=== PATIENT | male | born 1940 | race Caucasian/White ===

== ENCOUNTER 2021-11-02 08:19 | Emergency (ER) | payer MEDICARE, SELFPAY ==
--- NOTE | 2021-11-02 09:36 | ED.MALEGU ---
HPI - Male Genitourinary General Time Seen by Provider: 09:20 Chief complaint: Urogenital Problems, Male Stated complaint: Urinating blood Time Seen by Provider: 11/02/21 09:20 Source: patient, family and RN notes reviewed Mode of arrival: ambulatory Limitations: no limitations History of Present Illness HPI Narrative: The patient is a very pleasant 81-year-old male with a history of prostate cancer, prostatectomy now with recurrent mass and on chemotherapy who comes to the emergency room for evaluation regarding blood in his urine. They noticed this started yesterday and has continued today. It is associated with some slight discomfort while urinating but patient does not experienced any fever or chills or vomiting. He has noted that over the past few days he is urinating frequently. Patient states that yesterday he was raising his leg up because it has been chronically swollen since the development of a DVT. He was told that he would need to get this fluid to reabsorbed into his system in order to urinated out. He is wondering if lifting his leg up like that cause the blood clot to somehow BMs reabsorbed and he is urinating that out. I have reassured him that is not the case at this time. Currently patient is on oral chemotherapy for metastatic prostate cancer. He is also on Eliquis as he developed a left leg DVT. Onset (ago): day(s) Related Data Home Medications Medication Instructions Recorded Confirmed abiraterone 250 mg tablet 1,000 mg PO DAILY 11/02/21 11/02/21 amlodipine 5 mg tablet 5 mg PO DAILY 11/02/21 11/02/21 apixaban 5 mg tablet (Eliquis) 5 mg PO Q12H 11/02/21 11/02/21 carvedilol 12.5 mg tablet mg 11/02/21 chlorthalidone 25 mg tablet 25 mg PO DAILY 11/02/21 11/02/21 levothyroxine 100 mcg tablet 100 mcg PO DAILY 11/02/21 11/02/21 lisinopril 40 mg tablet 40 mg PO DAILY 11/02/21 11/02/21 oxycodone 5 mg tablet mg PO Q4H PRN 11/02/21 potassium chloride 10 mEq 10 meq PO DAILY 11/02/21 11/02/21 tablet,extended release prednisone 5 mg tablet 5 mg PO Q12H 11/02/21 11/02/21 rivaroxaban 10 mg tablet (Xarelto) mg 11/02/21 Previous Rx's Medication Instructions Recorded cephalexin 500 mg capsule 500 mg PO TID #15 cap 11/02/21 Allergies Allergy/AdvReac Type Severity Reaction Status Date / Time hydrochlorothiazide Allergy Severe pancreatiti Verified 10/20/21 10:53 s latex Allergy Intermediate rash Verified 10/20/21 10:53 adhesives AdvReac Unknown Uncoded 10/20/21 10:53 Review of Systems Status of ROS: Reports: 6 or more systems reviewed and unremarkable except as noted in History and below Const: Denies: fever or chills Cardio: Denies: shortness of breath with exertion Resp: Denies: shortness of breath GI: Denies: abdominal pain, nausea or vomiting : Reports: urinary frequency and blood in urine Musculo: Denies: back pain PFSH PFSH Medical History Left femoral vein DVT Pulmonary embolism Social History Smoking Status: Former smoker Do you use any of these nicotine containing products: None Second hand tobacco smoke exposure: No How often do you have a drink containing alcohol: never AUDIT-C Alcohol total score: 0 Non-prescribed substance use: denies use service: Yes Exam Narrative: Exam Narrative: Patient is alert and oriented and very pleasant gentleman. He is not in any acute distress. His heart is with regular rate and rhythm at this time and is lungs are clear. His belly is protuberant but is soft and there is no tenderness. Lower extremity show left lower extremity bogginess mild erythema. It is not warm to the touch. He is ambulating without difficulty. Const: Documenting provider has reviewed patient's vital signs: yes Course Course Hospital Course: At this time patient presents with hematuria. Differential diagnosis does include UTI verses prostatic or bladder tumor that is bleeding. Urinalysis along with a CBC and basic panel as well as bladder ultrasound is ordered at this time. Reevaluation(s) Reevaluation #1: Bedside ultrasound shows less than 10 mils in the bladder. White count is reassuring and creatinine is at 1.9 consistent with previous values. Urinalysis shows evidence of hematuria and some white cells. MDM - Male Genitourinary MDM Narrative Medical decision making narrative: 1. UTI-patient at this time is presenting with the onset of hematuria yesterday. He does not appear to be retaining urine. White count is reassuring and he has no signs of sepsis. While awaiting the urine culture we will treat with Keflex 500 mg p.o. t.i.d.. 2. Disposition-patient is discharged home in the care of his . He will return for increasing fever vomiting and worsening symptoms. Medical Records Attestation: I reviewed the patient's medical records. Lab Data Attestation: I reviewed the patient's lab results. Labs: Lab Results 11/02/21 11/02/21 11/02/21 Range/Units 09:34 09:49 09:49 WBC 7.27 (4.50-11.00) K/uL RBC 4.24 L (4.30-5.90) m/uL Hgb 12.9 L (13.5-17.5) gm/dL Hct 39.2 (37.0-53.0) % MCV 93 (80-100) fL MCH 30 (26-34) pg MCHC 33 (32-36) gm/dL RDW Coeff of Kevyn 13.5 (11.5-15.5) % Plt Count 209 (140-440) K/uL Neut % (Auto) 78.1 H (42.0-72.0) % Lymph % (Auto) 13.1 L (20-44) % [place] % (Auto) 7.2 (0.0-11.0) % Eos % (Auto) 1.0 (0.0-7.0) % Baso % (Auto) 0.3 (0.0-3.0) % Neut # (Auto) 5.70 (1.7-7.0) K/uL Lymph # (Auto) 1.00 (0.90-2.90) K/uL [place] # (Auto) 0.50 (0.00-0.90) K/UL Eos # (Auto) 0.07 (0.00-0.50) K/uL Baso # (Auto) 0.02 (0.00-0.30) K/uL Abs Immat Gran (auto) 0.02 (0.00-0.30) K/uL Sodium 138 (135-149) mmol/L Potassium 3.7 (3.6-5.1) mmol/L Chloride 104 (96-114) mmol/L Carbon Dioxide 26 (20-32) mmol/L BUN 40 H (7-30) mg/dL Creatinine 1.9 H (0.5-1.5) mg/dL Glucose 108 (60-115) mg/dL Calcium 9.1 (8.4-10.6) mg/dL Urine Color Red A (Yellow) Urine Appearance Clear (Clear) Urine pH 5.0 (5.0-8.5) Ur Specific [place] 1.025 (1.000-1.030) Urine Protein 3+ A (Negative) Urine Glucose (UA) Negative (Negative) Urine Ketones Negative (Negative) Urine Blood 3+ A (Negative) Urine Nitrite Positive A (Negative) Urine Bilirubin 1+ A (Negative) Urine Urobilinogen 1.0 (0.2-1.0) Ur Leukocyte Esterase Negative (Negative) Urine RBC >100 A (0-2) Urine WBC 5-10 A (0-5) Ur Squamous Epith Cells Few (None-Few) Amorphous Sediment Many A (None) Other Sediment 0 (None) Urine Bacteria Many A (None) Urine Mucus (None) Discharge Plan Discharge Clinical Impression: Acute UTI, Metastatic malignant neoplasm to prostate Patient Disposition: Home, Self-Care Additional Instructions: Start antibiotic Keflex today. Await the urine culture to ensure that we have pick the right antibiotic. Follow-up with your physician if bleeding continues. Return to the emergency room if bleeding is worsening. Return to the emergency room if you develop fever, vomiting or chills. Activity Level: No Restrictions Prescriptions: New cephalexin 500 mg capsule 500 mg PO TID Qty: 15 0RF No Action chlorthalidone 25 mg tablet 25 mg PO DAILY 0RF prednisone 5 mg tablet 5 mg PO Q12H 0RF levothyroxine 100 mcg tablet 100 mcg PO DAILY 0RF potassium chloride 10 mEq tablet extended release 10 meq PO DAILY 0RF amlodipine 5 mg tablet 5 mg PO DAILY 0RF lisinopril 40 mg tablet 40 mg PO DAILY 0RF oxycodone 5 mg tablet PO Q4H PRN0RF Label Comments: 5 MG PO Q8-12H PRN MDD: 6 carvedilol 12.5 mg tablet 0RF abiraterone 250 mg tablet 1,000 mg PO DAILY 0RF Xarelto 10 mg tablet 0RF Eliquis 5 mg tablet 5 mg PO Q12H 0RF Follow Up/Referrals: Luke Ricci MD [Primary Care Provider] - Stand Alone Forms: [employer] Info Instructions
[2021-11-02 09:52] LABS: Appearance Urine Clear (Clear); Bilirubin Urine 1+ (Negative); Blood Urine 3+ (Negative); Color Urine Red (Yellow); Glucose Urine Negative (Negative); Ketones Urine Negative (Negative); Leukocyte Esterase Urine Negative (Negative); Nitrite Urine Positive (Negative); Protein Urine 3+ (Negative); Specific Gravity Urine 1.025 (1.000-1.030)
[2021-11-02 09:59] LABS: Basophils Absolute Auto 0.02 K/uL (0.00-0.30); Basophils Percent Auto 0.3 % (0.0-3.0); Eosinophils Absolute Auto 0.07 K/uL (0.00-0.50); Hematocrit 39.2 % (37.0-53.0); Hemoglobin* 12.9 gm/dL (13.5-17.5); Immature Granulocytes Abs Auto 0.02 K/uL (0.00-0.30); Lymphocytes Percent Auto 13.1 % (20-44); Mean Corpuscular HGB Conc 33 gm/dL (32-36); Mean Corpuscular Hemoglobin 30 pg (26-34); Mean Corpuscular Volume 93 fL (80-100); Monocytes Percent Auto 7.2 % (0.0-11.0); Neutrophils Percent Auto 78.1 % (42.0-72.0); Platelet Count* 209 K/uL (140-440); RDW Coefficient of Variation % 13.5 % (11.5-15.5); Red Blood Count 4.24 m/uL (4.30-5.90); White Blood Count* 7.27 K/uL (4.50-11.00)
[2021-11-02 10:02] LABS: Slide Review Reflex No
[2021-11-02 10:14] LABS: Amorphous Sediment Urine Many; Bacteria Urine Many; RBC Urine >100 (0-2); Squamous Epithelial Cell Urine Few (None-Few)
[2021-11-02 10:15] LABS: Other Sediment Urine 0
[2021-11-02 10:22] LABS: Chloride* 104 mmol/L (96-114); Potassium* 3.7 mmol/L (3.6-5.1); Sodium* 138 mmol/L (135-149)
[2021-11-02 10:25] LABS: Blood Urea Nitrogen* 40 mg/dL (7-30); Carbon Dioxide* 26 mmol/L (20-32); Creatinine* 1.9 mg/dL (0.5-1.5); Estimated Glomerular Filt Rate 34.79; Glucose* 108 mg/dL (60-115)
[2021-11-02 10:26] LABS: Calcium* 9.1 mg/dL (8.4-10.6)
== END 2021-11-02 10:56 | disposition home or self-care (01) ==
PROVIDERS: Emergency Provider Family Medicine; PCP Family Medicine
DX: N39.0 Urinary tract infection, site not specified (principal); C61 Malignant neoplasm of prostate
CPT/HCPCS: 36415; 80048; 81001; 85025; 87086; 99283

== ENCOUNTER 2021-11-08 07:22 | Outpatient (RCR) | payer MEDICARE, SELFPAY ==
[2021-10-20 09:51] LABS: Cholesterol* 174 mg/dL (90-199)
[2021-10-20 09:52] LABS: HDL Cholesterol* 39 mg/dL (>=40); LDL Cholesterol Calculated 109 mg/dL (<100); Triglycerides* 129 mg/dL (40-149)
--- NOTE | 2021-10-24 15:27 | ONC.NURNOTE ---
Addendum entered by Zoey Medley RN 10/24/21 15:42: also reports some spinal joint pain and low back pain that is relieved with a back rub by instructed to call if pain continues or worsens and may need to let Dr Araiza know Original Note: MARCELINA FOLLOW UP CALL: upset stomach yesterday with no further concerns today watching added sugars at home per his own accord no other concerns starting 3 tabs today of Marcelina
[2021-11-07 09:20] LABS: Basophils Absolute Auto 0.01 K/uL (0.00-0.30); Basophils Percent Auto 0.2 % (0.0-3.0); Eosinophils Absolute Auto 0.05 K/uL (0.00-0.50); Eosinophils Percent Auto 0.8 % (0.0-7.0); Hematocrit 37.3 % (37.0-53.0); Hemoglobin* 12.6 gm/dL (13.5-17.5); Immature Granulocytes Abs Auto 0.01 K/uL (0.00-0.30); Lymphocytes Percent Auto 14.9 % (20-44); Mean Corpuscular HGB Conc 34 gm/dL (32-36); Mean Corpuscular Hemoglobin 31 pg (26-34); Mean Corpuscular Volume 92 fL (80-100); Monocytes Percent Auto 8.2 % (0.0-11.0); Neutrophils Percent Auto 75.7 % (42.0-72.0); Platelet Count* 215 K/uL (140-440); RDW Coefficient of Variation % 13.6 % (11.5-15.5); Red Blood Count 4.05 m/uL (4.30-5.90); White Blood Count* 6.46 K/uL (4.50-11.00)
[2021-11-07 09:32] LABS: Albumin* 4.2 g/dL (3.3-5.0)
[2021-11-07 09:33] LABS: Chloride* 102 mmol/L (96-114); Potassium* 4.1 mmol/L (3.6-5.1); Sodium* 137 mmol/L (135-149)
[2021-11-07 09:35] LABS: Bilirubin Total* 0.5 mg/dL (0.1-1.5); Carbon Dioxide* 25 mmol/L (20-32); Cholesterol* 172 mg/dL (90-199); Creatinine* 1.9 mg/dL (0.5-1.5); Estimated Glomerular Filt Rate 35 ml/min
[2021-11-07 09:36] LABS: Alanine Aminotransferase* 19 U/L (4-50); Alkaline Phosphatase* 69 U/L (40-150); Aspartate Amino Transferase* 23 U/L (12-35); Blood Urea Nitrogen* 48 mg/dL (7-30); Calcium* 9.1 mg/dL (8.4-10.6); Glucose* 107 mg/dL (60-115); Total Protein* 6.6 g/dL (6.0-8.3); Triglycerides* 192 mg/dL (40-149)
[2021-11-07 09:37] LABS: HDL Cholesterol* 39 mg/dL (>=40); LDL Cholesterol Calculated 95 mg/dL (<100)
[2021-11-08 11:29] LABS: Slide Review Reflex No
== END 2021-11-19 23:59 | disposition home or self-care (01) ==
LOC: CCIC 07:22
PROVIDERS: PCP Family Medicine; Visit Provider Internal Medicine Hematology & Oncology
DX: C61 Malignant neoplasm of prostate (principal); Z79.811 Long term (current) use of aromatase inhibitors; Z79.01 Long term (current) use of anticoagulants; R25.2 Cramp and spasm
CPT/HCPCS: 36415; 80053; 80061; 84153; 85025; 99212; 99215

== ENCOUNTER 2021-12-02 07:47 | Emergency (ER) | payer MEDICARE, SELFPAY ==
[2021-12-02 08:02] VITALS: BP 109/78; PULSE 97; RESP 20; TEMP 36.2; O2SAT 96; BMI 31.3
[2021-12-02 08:16] LABS: Bacteria Urine Many; WBC Urine >100 (0-5)
--- NOTE | 2021-12-02 08:16 | ED.GENADULT ---
HPI - General Adult General Time Seen by Provider: 08:16 Date Seen: 12/02/21 Chief complaint: Urogenital Problems, Male Stated complaint: Possible bladder infection Time Seen by Provider: 12/02/21 07:54 Source: patient Mode of arrival: ambulatory Limitations: no limitations History of Present Illness HPI narrative: Patient is a 81 white male who presents with hematuria, dysuria some mild lower abdominal discomfort. He has had urinary tract infection the past. He is being treated for prostate cancer. He is also on Eliquis for DVT and PE by his history. He had successful treat with Keflex within the last month, and he would like that again, he is very anxious to get going today. He does not have chills rigors fever, or nausea vomiting. No other specific complaints. He has been taking his medications at home as prescribed Related Data Home Medications Medication Instructions Recorded Confirmed abiraterone 250 mg tablet 1,000 mg PO DAILY 11/02/21 11/14/21 amlodipine 5 mg tablet 5 mg PO DAILY 11/02/21 11/14/21 apixaban 5 mg tablet (Eliquis) 5 mg PO Q12H 11/02/21 11/14/21 carvedilol 12.5 mg tablet mg 11/02/21 11/14/21 chlorthalidone 25 mg tablet 25 mg PO DAILY 11/02/21 11/14/21 levothyroxine 100 mcg tablet 100 mcg PO DAILY 11/02/21 11/14/21 lisinopril 40 mg tablet 40 mg PO DAILY 11/02/21 11/14/21 oxycodone 5 mg tablet mg PO Q4H PRN 11/02/21 11/14/21 potassium chloride 10 mEq 10 meq PO DAILY 11/02/21 11/14/21 tablet,extended release prednisone 5 mg tablet 5 mg PO Q12H 11/02/21 11/14/21 rivaroxaban 10 mg tablet (Xarelto) mg 11/02/21 11/14/21 Previous Rx's Medication Instructions Recorded cephalexin 500 mg capsule 500 mg PO TID #21 caps 12/02/21 Allergies Allergy/AdvReac Type Severity Reaction Status Date / Time hydrochlorothiazide Allergy Severe pancreatiti Verified 11/14/21 10:15 s latex Allergy Intermediate rash Verified 11/14/21 10:15 adhesives AdvReac Unknown Uncoded 11/14/21 10:15 Review of Systems Status of ROS: Reports: 6 or more systems reviewed and unremarkable except as noted in History and below [facility] Medical History Acute pancreatitis (12/26/10) Bradycardia Constipation Left femoral vein DVT Malignant neoplasm of prostate (08/2010) Pain of right hip Prostate cancer metastatic to multiple sites Pulmonary embolism UTI (urinary tract infection) Surgical History History of radical prostatectomy S/P radiation therapy Status post total replacement of left hip Family History Brother Prostate cancer Diabetes Father No problems noted. Mother No problems noted. Social History Smoking Status: Former smoker Do you use any of these nicotine containing products: None Second hand tobacco smoke exposure: No How often do you have a drink containing alcohol: never How often do you have six or more drinks on one occasion: Never AUDIT-C Alcohol total score: 0 Non-prescribed substance use: denies use service: Yes Exam Narrative: Exam Narrative: Objective: The patient is alert or x3 Vital signs as above Abdomen is benign soft nontender no suprapubic tenderness No CVA tenderness Extremities are no edema, neurologic nonfocal, skin warm and dry. Const: Vital Signs, click to edit/add: Vital Signs - 24 hr 12/02/21 08:02 Temperature 97.2 F L Pulse Rate [Pulse Oximeter] 97 Respiratory Rate 20 Blood Pressure [Ri ght Upper Arm] 109/78 Pulse Oximetry 96 Oxygen Delivery Me thod Room Air Course Vital Signs Vital signs: Initial Vital Signs Temperature 97.2 F L 12/02/21 08:02 Temperature Source Temporal Artery Scan 12/02/21 08:02 Pulse Rate 97 12/02/21 08:02 Pulse Rhythm 12/02/21 08:02 Respiratory Rate 20 12/02/21 08:02 Blood Pressure 109/78 12/02/21 08:02 Blood Pressure Mean 88 12/02/21 08:02 Blood Pressure Position Sitting 12/02/21 08:02 Pulse Oximetry 96 12/02/21 08:02 Oxygen Delivery Method 12/02/21 08:02 Vital Signs Temperature 97.2 F L 12/02/21 08:02 Pulse Rate 97 12/02/21 08:02 Respiratory Rate 20 12/02/21 08:02 Blood Pressure 109/78 12/02/21 08:02 Pulse Oximetry 96 12/02/21 08:02 Oxygen Delivery Method 12/02/21 08:02 Temperature 97.2 F L 12/02/21 08:02 Pulse Rate 97 12/02/21 08:02 Respiratory Rate 20 12/02/21 08:02 Blood Pressure 109/78 12/02/21 08:02 Pulse Oximetry 96 12/02/21 08:02 Oxygen Delivery Method 12/02/21 08:02 Medical Decision Making MDM Narrative Medical decision making narrative: Patient request to get medication and be discharged, at this point he appears clinically stable. He responded well to Keflex in the past for urinary tract infection. I think we can safely give him a dose of Keflex now 500, followed by 500 t.i.d. x7 days, will look at a urinalysis and urine culture. Update his regular physician within 48 hours, if his bleeding does not stop or worsens or gets lightheadedness or dizziness should return to the ED. Lab Data Labs: Lab Results 12/02/21 Range/Units 07:54 Urine RBC 2-5 A (0-2) Urine WBC >100 A (0-5) Ur Squamous Epith Cells None (None-Few) Urine Bacteria Many A (None) Discharge Plan Discharge Clinical Impression: Urinary tract infection, Hematuria Patient Disposition: Home, Self-Care Condition: Stable Additional Instructions: Keflex as prescribed, continue home medications, we will call with urinalysis results as needed, update regular physician within 2 days, return sooner problems or concerns, any lightheadedness, dizziness chest pain, fever chills Activity Level: Light activity Discharge Diet: Regular Prescriptions: New cephalexin 500 mg capsule 500 mg PO TID Qty: 21 0RF No Action chlorthalidone 25 mg tablet 25 mg PO DAILY prednisone 5 mg tablet 5 mg PO Q12H levothyroxine 100 mcg tablet 100 mcg PO DAILY potassium chloride 10 mEq tablet extended release 10 meq PO DAILY amlodipine 5 mg tablet 5 mg PO DAILY lisinopril 40 mg tablet 40 mg PO DAILY oxycodone 5 mg tablet PO Q4H PRN Label Comments: 5 MG PO Q8-12H PRN MDD: 6 carvedilol 12.5 mg tablet abiraterone 250 mg tablet 1,000 mg PO DAILY Xarelto 10 mg tablet Eliquis 5 mg tablet 5 mg PO Q12H Follow Up/Referrals: Luke Ricci MD [Primary Care Provider] - Stand Alone Forms: [employer] Info Instructions
[2021-12-02] MEDS: cephALEXin 500 MG CAPSULE PO (08:18)
== END 2021-12-02 08:25 | disposition home or self-care (01) ==
LOC: ED 08:19
PROVIDERS: Emergency Provider Family Medicine; PCP Family Medicine
DX: N39.0 Urinary tract infection, site not specified (principal)
CPT/HCPCS: 81015; 87086; 99283; 99284; A9270

== ENCOUNTER 2022-05-30 10:00 | Outpatient (RCR) | payer MEDICARE, SELFPAY ==
[2021-12-05 10:23] LABS: Basophils Absolute Auto 0.01 K/uL (0.00-0.30); Basophils Percent Auto 0.1 % (0.0-3.0); Eosinophils Absolute Auto 0.09 K/uL (0.00-0.50); Hematocrit 35.7 % (37.0-53.0); Immature Granulocytes Abs Auto 0.03 K/uL (0.00-0.30); Lymphocytes Percent Auto 9.1 % (20-44); Mean Corpuscular HGB Conc 34 gm/dL (32-36); Mean Corpuscular Hemoglobin 31 pg (26-34); Mean Corpuscular Volume 94 fL (80-100); Monocytes Percent Auto 6.9 % (0.0-11.0); Neutrophils Percent Auto 82.6 % (42.0-72.0); Platelet Count* 243 K/uL (140-440); RDW Coefficient of Variation % 14.4 % (11.5-15.5); Red Blood Count 3.82 m/uL (4.30-5.90); White Blood Count* 8.67 K/uL (4.50-11.00)
[2021-12-05 10:25] LABS: Slide Review Reflex No
[2021-12-05 10:35] LABS: Albumin* 3.8 g/dL (3.3-5.0); Chloride* 105 mmol/L (96-114); Potassium* 3.9 mmol/L (3.6-5.1); Sodium* 137 mmol/L (135-149)
[2021-12-05 10:37] LABS: Cholesterol* 197 mg/dL (90-199); Triglycerides* 197 mg/dL (40-149)
[2021-12-05 10:38] LABS: HDL Cholesterol* 44 mg/dL (>=40); LDL Cholesterol Calculated 114 mg/dL (<100)
[2021-12-05 10:38] LABS: Alkaline Phosphatase* 67 U/L (40-150); Aspartate Amino Transferase* 25 U/L (12-35); Bilirubin Total* 0.4 mg/dL (0.1-1.5); Blood Urea Nitrogen* 50 mg/dL (7-30); Carbon Dioxide* 24 mmol/L (20-32); Creatinine* 1.8 mg/dL (0.5-1.5); Estimated Glomerular Filt Rate 37 ml/min; Total Protein* 6.5 g/dL (6.0-8.3)
[2021-12-05 10:39] LABS: Alanine Aminotransferase* 22 U/L (4-50); Calcium* 8.5 mg/dL (8.4-10.6); Glucose* 134 mg/dL (60-115)
--- NOTE | 2021-12-06 16:24 | ONC.NURNOTE ---
Called patient about his labs and to continue with same plan per Dr. Araiza. notes that patient has another bladdar infection (this is the third since starting abiraterone in 10/16/2021). Patient continues to have blood in urine, with longstanding frequency. They are wondering if this is normal, they were told that since this was diagnosed on Saturday he should be feeling better and should be in contact with primary care to address this. TENANT RELATIONS COORDINATOR had this same conversation with son, Forest earlier today. They will contact their primary care about current infection, nursing to talk discuss with Dr. Araiza next week to see if this could be related to medication.
--- NOTE | 2021-12-11 12:17 | ONC.NURNOTE ---
Pt's son left message wondering if PSA drawn with last blood draw. Percher did leave message with John, pt's son that a PSA was not drawn, last PSA was on 10/06/21.
[2022-01-02 09:56] LABS: Basophils Absolute Auto 0.02 K/uL (0.00-0.30); Basophils Percent Auto 0.3 % (0.0-3.0); Eosinophils Absolute Auto 0.06 K/uL (0.00-0.50); Eosinophils Percent Auto 0.8 % (0.0-7.0); Hematocrit 35.9 % (37.0-53.0); Immature Granulocytes Abs Auto 0.01 K/uL (0.00-0.30); Lymphocytes Percent Auto 12.2 % (20-44); Mean Corpuscular HGB Conc 33 gm/dL (32-36); Mean Corpuscular Hemoglobin 32 pg (26-34); Mean Corpuscular Volume 94 fL (80-100); Monocytes Percent Auto 6.6 % (0.0-11.0); Platelet Count* 234 K/uL (140-440); RDW Coefficient of Variation % 14.1 % (11.5-15.5); Red Blood Count 3.81 m/uL (4.30-5.90); White Blood Count* 7.54 K/uL (4.50-11.00)
[2022-01-02 10:14] LABS: Slide Review Reflex No
[2022-01-02 10:19] LABS: Albumin* 4.3 g/dL (3.3-5.0); Chloride* 99 mmol/L (96-114); Potassium* 3.7 mmol/L (3.6-5.1); Sodium* 137 mmol/L (135-149)
[2022-01-02 10:21] LABS: Cholesterol* 220 mg/dL (90-199)
[2022-01-02 10:22] LABS: Alanine Aminotransferase* 33 U/L (4-50); Alkaline Phosphatase* 74 U/L (40-150); Aspartate Amino Transferase* 30 U/L (12-35); Bilirubin Total* 0.5 mg/dL (0.1-1.5); Blood Urea Nitrogen* 42 mg/dL (7-30); Calcium* 8.9 mg/dL (8.4-10.6); Carbon Dioxide* 24 mmol/L (20-32); Creatinine* 1.7 mg/dL (0.5-1.5); Estimated Glomerular Filt Rate 40 ml/min; Glucose* 115 mg/dL (60-115); Total Protein* 7.1 g/dL (6.0-8.3); Triglycerides* 181 mg/dL (40-149)
[2022-01-02 10:23] LABS: HDL Cholesterol* 42 mg/dL (>=40); LDL Cholesterol Calculated 142 mg/dL (<100)
[2022-01-02 10:47] LABS: PSA Diagnostic* 0.45 ng/mL (0.10-4.00)
[2022-01-05 09:50] VITALS: BP 145/71; PULSE 73; RESP 16; TEMP 36.1; O2SAT 98
--- NOTE | 2022-01-18 12:49 | ONC.NURNOTE ---
Packaging Clerk called in follow up of dose change of Abiraterone reports that he has had ongoing cold symptoms and have been checked for covid as a result no other new concerns feeling better over all
[2022-01-31 10:06] LABS: Basophils Absolute Auto 0.02 K/uL (0.00-0.30); Basophils Percent Auto 0.3 % (0.0-3.0); Eosinophils Absolute Auto 0.08 K/uL (0.00-0.50); Eosinophils Percent Auto 1.1 % (0.0-7.0); Hematocrit 38.9 % (37.0-53.0); Hemoglobin* 12.8 gm/dL (13.5-17.5); Immature Granulocytes Abs Auto 0.02 K/uL (0.00-0.30); Lymphocytes Percent Auto 15.2 % (20-44); Mean Corpuscular HGB Conc 33 gm/dL (32-36); Mean Corpuscular Hemoglobin 31 pg (26-34); Mean Corpuscular Volume 94 fL (80-100); Monocytes Percent Auto 5.5 % (0.0-11.0); Neutrophils Percent Auto 77.6 % (42.0-72.0); Platelet Count* 269 K/uL (140-440); RDW Coefficient of Variation % 12.5 % (11.5-15.5); Red Blood Count 4.15 m/uL (4.30-5.90); White Blood Count* 7.59 K/uL (4.50-11.00)
[2022-01-31 10:09] LABS: Slide Review Reflex No
[2022-01-31 10:22] LABS: Cholesterol* 238 mg/dL (90-199); HDL Cholesterol* 47 mg/dL (>=40); LDL Cholesterol Calculated 149 mg/dL (<100); Triglycerides* 208 mg/dL (40-149)
--- NOTE | 2022-01-31 15:25 | ONC.NURNOTE ---
Lab reviewed by Dr Araiza and called to [facility] Due to lower WBC dose of hydrea is reduced to 500mg M-F and 1000 mg Sa Suha patient reviewed new dosing correctly wth writer editor next lab needed in 2 weeks patient gets labs at [facility]
--- NOTE | 2022-01-31 15:33 | ONC.NURNOTE ---
Labs reviewed by Dr Araiza and message left on patients VM to call [facility] for results noted increase in cholesterol and triglycerides labs and Dr Araiza note faxed to Dr Ricci When Gale calls back the following instructions to be given Per Dr Araiza : follow a diet lower in cholesterol check in with Dr Ricci for possible management of cholesterol continue abiraterone 500mg/day
[2022-01-31 17:13] LABS: Chloride* 98 mmol/L (96-114); Sodium* 136 mmol/L (135-149)
[2022-01-31 17:14] LABS: Alanine Aminotransferase* 34 U/L (4-50); Albumin* 4.3 g/dL (3.3-5.0); Alkaline Phosphatase* 77 U/L (40-150); Aspartate Amino Transferase* 32 U/L (12-35); Bilirubin Total* 0.4 mg/dL (0.1-1.5); Blood Urea Nitrogen* 37 mg/dL (7-30); Calcium* 9.3 mg/dL (8.4-10.6); Carbon Dioxide* 28 mmol/L (20-32); Creatinine* 1.6 mg/dL (0.5-1.5); Estimated Glomerular Filt Rate 42 ml/min; Glucose* 117 mg/dL (60-115); PSA Diagnostic* 0.16 ng/mL (0.10-4.00); Total Protein* 7.1 g/dL (6.0-8.3)
[2022-02-28 10:13] LABS: Basophils Absolute Auto 0.01 K/uL (0.00-0.30); Basophils Percent Auto 0.1 % (0.0-3.0); Eosinophils Absolute Auto 0.07 K/uL (0.00-0.50); Eosinophils Percent Auto 0.8 % (0.0-7.0); Hematocrit 37.7 % (37.0-53.0); Hemoglobin* 12.4 gm/dL (13.5-17.5); Immature Granulocytes Abs Auto 0.02 K/uL (0.00-0.30); Immature Granulocytes Pct Auto 0.2 %; Lymphocytes Percent Auto 10.7 % (20-44); Mean Corpuscular HGB Conc 33 gm/dL (32-36); Mean Corpuscular Hemoglobin 31 pg (26-34); Mean Corpuscular Volume 93 fL (80-100); Monocytes Percent Auto 5.3 % (0.0-11.0); Neutrophils Percent Auto 82.9 % (42.0-72.0); Platelet Count* 246 K/uL (140-440); RDW Coefficient of Variation % 12.5 % (11.5-15.5); Red Blood Count 4.05 m/uL (4.30-5.90); White Blood Count* 9.07 K/uL (4.50-11.00)
[2022-02-28 10:26] LABS: Slide Review Reflex No
[2022-02-28 10:34] LABS: Albumin* 4.1 g/dL (3.3-5.0); Chloride* 101 mmol/L (96-114); Sodium* 138 mmol/L (135-149)
[2022-02-28 10:35] LABS: Potassium* 3.9 mmol/L (3.6-5.1)
[2022-02-28 10:37] LABS: Aspartate Amino Transferase* 26 U/L (12-35); Bilirubin Total* 0.3 mg/dL (0.1-1.5); Blood Urea Nitrogen* 29 mg/dL (7-30); Carbon Dioxide* 27 mmol/L (20-32); Cholesterol* 204 mg/dL (90-199); Creatinine* 1.4 mg/dL (0.5-1.5); Estimated Glomerular Filt Rate 50 ml/min; Glucose* 136 mg/dL (60-115); Total Protein* 6.6 g/dL (6.0-8.3); Triglycerides* 162 mg/dL (40-149)
[2022-02-28 10:38] LABS: Alanine Aminotransferase* 27 U/L (4-50); Alkaline Phosphatase* 64 U/L (40-150); Calcium* 8.7 mg/dL (8.4-10.6); HDL Cholesterol* 51 mg/dL (>=40); LDL Cholesterol Calculated 121 mg/dL (<100)
--- NOTE | 2022-02-28 15:34 | ONC.NURNOTE ---
PATIENT REQUESTS A PSA WITH EACH LAB DRAW- ADD ON TEST ORDERED UNDER ANNETTE PRAJAPATI
[2022-02-28 20:40] LABS: PSA Diagnostic* < 0.06 ng/mL (0.10-4.00)
--- NOTE | 2022-03-01 10:38 | ONC.NURNOTE ---
PSA results called to patient has been requesting PSA with each lab draw
[2022-04-05 12:09] LABS: Basophils Absolute Auto 0.01 K/uL (0.00-0.30); Basophils Percent Auto 0.1 % (0.0-3.0); Eosinophils Absolute Auto 0.03 K/uL (0.00-0.50); Eosinophils Percent Auto 0.3 % (0.0-7.0); Hematocrit 39.5 % (37.0-53.0); Hemoglobin* 12.9 gm/dL (13.5-17.5); Immature Granulocytes Abs Auto 0.05 K/uL (0.00-0.30); Immature Granulocytes Pct Auto 0.5 %; Lymphocytes Percent Auto 10.4 % (20-44); Mean Corpuscular HGB Conc 33 gm/dL (32-36); Mean Corpuscular Hemoglobin 30 pg (26-34); Mean Corpuscular Volume 91 fL (80-100); Monocytes Percent Auto 4.6 % (0.0-11.0); Neutrophils Percent Auto 84.1 % (42.0-72.0); Platelet Count* 210 K/uL (140-440); RDW Coefficient of Variation % 12.9 % (11.5-15.5); Red Blood Count 4.33 m/uL (4.30-5.90); White Blood Count* 9.71 K/uL (4.50-11.00)
[2022-04-05 12:19] LABS: Slide Review Reflex No
[2022-04-05 12:26] LABS: Albumin* 4.2 g/dL (3.3-5.0); Chloride* 103 mmol/L (96-114)
[2022-04-05 12:27] LABS: Sodium* 137 mmol/L (135-149)
[2022-04-05 12:29] LABS: Alkaline Phosphatase* 78 U/L (40-150); Aspartate Amino Transferase* 36 U/L (12-35); Bilirubin Total* 0.4 mg/dL (0.1-1.5); Blood Urea Nitrogen* 30 mg/dL (7-30); Carbon Dioxide* 25 mmol/L (20-32); Cholesterol* 223 mg/dL (90-199); Creatinine* 1.4 mg/dL (0.5-1.5); Estimated Glomerular Filt Rate 50 ml/min; Total Protein* 6.9 g/dL (6.0-8.3)
[2022-04-05 12:30] LABS: Alanine Aminotransferase* 44 U/L (4-50); Calcium* 8.8 mg/dL (8.4-10.6); Glucose* 123 mg/dL (60-115); HDL Cholesterol* 46 mg/dL (>=40); LDL Cholesterol Calculated 127 mg/dL (<100); Triglycerides* 250 mg/dL (40-149)
[2022-04-05 13:00] LABS: PSA Diagnostic* < 0.06 ng/mL (0.10-4.00)
--- NOTE | 2022-05-02 14:18 | PC.NURSE ---
Called pt today as he didn't arrive for his lab appointment today. Ceferinoshannan states that he went to [facility] for labs today. RN reviewed next lab appt on 05/30/2022. They will be here.
--- NOTE | 2022-05-24 13:47 | ONC.NURNOTE ---
recieved notice from [facility] that they have been unable to reach patient to deliver abiraterone call to - they have supply and he has been taking his current dose- 500mg/day instructed to call if have any barriers with ordering his next dose 3 months of refills faxed in last month
[2022-05-30 09:35] LABS: Basophils Absolute Auto 0.01 K/uL (0.00-0.30); Basophils Percent Auto 0.1 % (0.0-3.0); Eosinophils Absolute Auto 0.07 K/uL (0.00-0.50); Eosinophils Percent Auto 0.8 % (0.0-7.0); Hematocrit 40.5 % (37.0-53.0); Hemoglobin* 13.1 gm/dL (13.5-17.5); Immature Granulocytes Abs Auto 0.01 K/uL (0.00-0.30); Immature Granulocytes Pct Auto 0.1 %; Lymphocytes Percent Auto 12.9 % (20-44); Mean Corpuscular HGB Conc 32 gm/dL (32-36); Mean Corpuscular Hemoglobin 30 pg (26-34); Mean Corpuscular Volume 92 fL (80-100); Monocytes Percent Auto 6.2 % (0.0-11.0); Neutrophils Percent Auto 79.9 % (42.0-72.0); Platelet Count* 230 K/uL (140-440); RDW Coefficient of Variation % 13.3 % (11.5-15.5); Red Blood Count 4.42 m/uL (4.30-5.90)
[2022-05-30 09:42] LABS: Slide Review Reflex No
[2022-05-30 09:49] LABS: Chloride* 104 mmol/L (96-114)
[2022-05-30 09:50] LABS: Potassium* 4.2 mmol/L (3.6-5.1); Sodium* 140 mmol/L (135-149)
[2022-05-30 09:52] LABS: Bilirubin Total* 0.6 mg/dL (0.1-1.5); Carbon Dioxide* 29 mmol/L (20-32); Creatinine* 1.3 mg/dL (0.5-1.5); Estimated Glomerular Filt Rate 55 ml/min; Total Protein* 6.8 g/dL (6.0-8.3)
[2022-05-30 09:53] LABS: Alanine Aminotransferase* 38 U/L (4-50); Alkaline Phosphatase* 66 U/L (40-150); Aspartate Amino Transferase* 29 U/L (12-35); Blood Urea Nitrogen* 32 mg/dL (7-30); Calcium* 8.8 mg/dL (8.4-10.6); Cholesterol* 139 mg/dL (90-199); Glucose* 111 mg/dL (60-115); Triglycerides* 121 mg/dL (40-149)
[2022-05-30 09:54] LABS: HDL Cholesterol* 52 mg/dL (>=40); LDL Cholesterol Calculated 63 mg/dL (<100)
== END 2022-06-03 23:59 | disposition home or self-care (01) ==
LOC: CCIC 10:00
PROVIDERS: Clinical Nurse Specialist; Internal Medicine Hematology & Oncology; PCP Family Medicine; Referring Provider Family Medicine; Visit Provider Internal Medicine Medical Oncology
DX: C61 Malignant neoplasm of prostate (principal)
CPT/HCPCS: 36415; 80053; 80061; 84153; 85025; 96372; 96401; 99212; 99214; 99215; J9217

== ENCOUNTER 2022-09-01 18:39 | Inpatient (IN) | payer MEDICARE, SELFPAY ==
[2022-09-01] VITALS (14 sets, daily range): BP systolic 136; BP diastolic 70; PULSE 98–109; RESP 18; TEMP 37.6; O2SAT 91–96; BMI 25.1
--- NOTE | 2022-09-01 19:28 | ED_ITS ---
HPI - General Adult General Chief complaint: Weakness Stated complaint: Fever and Fall Time Seen by Provider: 09/01/22 19:09 History of Present Illness HPI narrative: This 82-year-old male comes in because of a couple falls that occurred today. He was seen yesterday in the emergency department here and diagnosed with a urinary tract infection. He was offered admission but declined this and wished to return home. He lives at home with his . His daughter was with him and agreed with this plan yesterday. Today he states that he fell a couple times while attempting to get up to the bathroom. He is taking an antibiotic but states that he missed his dose last night because he fell asleep. There was report that he had a temperature of a 103? at home today. He arrives here with temperature in the 99? range. He has recently taken some antipyretics. The patient is not complaining of any pain or injury from the falls. He states that he thinks that he might have bumped his head but does not report any headache. He does have a history of prostate cancer and has had a pulmonary embolism. He is currently taking Eliquis. Related Data Home Medications Medication Instructions Recorded Confirmed amlodipine 5 mg tablet 5 mg PO DAILY 11/02/21 07/02/22 apixaban 5 mg tablet (Eliquis) 5 mg PO Q12H 11/02/21 07/02/22 chlorthalidone 25 mg tablet 25 mg PO DAILY 11/02/21 07/02/22 levothyroxine 100 mcg tablet 100 mcg PO DAILY 11/02/21 07/02/22 lisinopril 40 mg tablet 40 mg PO DAILY 11/02/21 07/02/22 atorvastatin 20 mg tablet 20 mg PO 06/05/22 07/02/22 Previous Rx's Medication Instructions Recorded abiraterone 250 mg tablet 500 mg (2 x 250 mg) PO DAILY #60 04/17/22 tabs prednisone 5 mg tablet 5 mg PO BID #60 tabs 04/18/22 Allergies Allergy/AdvReac Type Severity Reaction Status Date / Time hydrochlorothiazide Allergy Severe pancreatiti Verified 07/02/22 12:57 s latex Allergy Intermediate rash Verified 07/02/22 12:57 adhesive Allergy Verified 07/02/22 12:57 Review of Systems Status of ROS: Reports: 10 or more systems reviewed and unremarkable except as noted in History and below Narrative: Constitutional: No weight gain or loss. He reports a fever earlier today. Eyes: No discharge. No vision changes. HENT: No congestion, no sore throat, no ear pain. Cardiovascular: No chest pain, no palpitations. Respiratory: No shortness of breath, no wheezes, no cough. Gastrointestinal: No abdominal pain, no vomiting, no diarrhea. Genitourinary: Dysuria symptoms from urinary tract infection. Musculoskeletal: Normal range of motion. Pedal edema in the left lower extremity. Skin: No rashes, no pruritis. Neurological: No dizziness, weakness, sensory change, speech change. Endo/Heme/Allergies: No bruising or bleeding. No polydipsia. Pysch: no suicidality, no anxiety, no insomnia. All other systems reviewed and are negative. [facility] Medical History Prostate cancer metastatic to multiple sites ?C61 - Malignant neoplasm of prostate (ICD-10) UTI (urinary tract infection) ?N39.0 - Urinary tract infection, site not specified (ICD-10) Pain of right hip ?M25.551 - Pain in right hip (ICD-10) Malignant neoplasm of prostate (08/2010) ?C61 - Malignant neoplasm of prostate (ICD-10) Constipation ?K59.00 - Constipation, unspecified (ICD-10) Acute pancreatitis (12/26/10) ?K85.90 - Acute pancreatitis without necrosis or infection, unspecified (ICD- 10) Acute UTI ?N39.0 - Urinary tract infection, site not specified (ICD-10) Bradycardia ?R00.1 - Bradycardia, unspecified (ICD-10) Left femoral vein DVT ?I82.412 - Acute embolism and thrombosis of left femoral vein (ICD-10) Pulmonary embolism ?I26.99 - Other pulmonary embolism without acute cor pulmonale (ICD-10) Surgical History 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 Mother No problems noted. Social History Smoking Status: Former smoker Do you use any of these nicotine containing products: None Second hand tobacco smoke exposure: No How often do you have a drink containing alcohol: never How often do you have six or more drinks on one occasion: Never AUDIT-C Alcohol total score: 0 Non-prescribed substance use: denies use service: Yes Exam Narrative: Exam Narrative: Constitutional: Well-developed, well-nourished, no acute distress. HEENT: Normocephalic, atraumatic. Neck: Normal range of motion. Nontender. Supple. Heart: Regular. No murmurs. Tachycardia, rate around 105 beats per minute. Intact distal pulses. Lungs: Clear to auscultation. No chest discomfort. No wheezes, rhonchi, or rales. Abdomen: Normal bowel sounds. Nontender. No rebound tenderness. Genitalia: Deferred. Back: No midline tenderness. Normal range of motion. Extremities: Normal range of motion. No injury. Skin: Intact. No rash. Warm. No erythema or pallor. Neurologic: No altered sensation. No weakness. Alert and oriented. No unilateral symptoms. Normal speech. No facial asymmetry. Psychiatric: No suicidality. No anxiety or depression. No insomnia. Nursing notes and vitals signs are reviewed. Const: Vital Signs, click to edit/add: Vital Signs - 24 hr 09/01/22 18:52 Temperature 99.7 F H Pulse Rate [Pulse Oximeter] 109 H Respiratory Rate 18 Blood Pressure [Ri ght Upper Arm] 136/70 Pulse Oximetry 91 Oxygen Delivery Me thod Room Air Course Vital Signs Vital signs: Initial Vital Signs Temperature 99.7 F H 09/01/22 18:52 Temperature Source Oral 09/01/22 18:52 Pulse Rate 109 H 09/01/22 18:52 Respiratory Rate 18 09/01/22 18:52 Blood Pressure 136/70 09/01/22 18:52 Blood Pressure Mean 92 09/01/22 18:52 Pulse Oximetry 91 09/01/22 18:52 Oxygen Delivery Method Room Air 09/01/22 18:52 Vital Signs Temperature 99.7 F H 09/01/22 18:52 Pulse Rate 109 H 09/01/22 18:52 Respiratory Rate 18 09/01/22 18:52 Blood Pressure 136/70 09/01/22 18:52 Pulse Oximetry 91 09/01/22 18:52 Oxygen Delivery Method Room Air 09/01/22 18:52 Temperature 99.7 F H 09/01/22 18:52 Pulse Rate 109 H 09/01/22 18:52 Respiratory Rate 18 09/01/22 18:52 Blood Pressure 136/70 09/01/22 18:52 Pulse Oximetry 91 09/01/22 18:52 Oxygen Delivery Method Room Air 09/01/22 18:52 Medical Decision Making MDM Narrative Medical decision making narrative: This patient arrives because of couple falls that occurred today and a report of a fever. He was seen yesterday and diagnosed with urinary tract infection and started on an antibiotic. He was offered admission but declined it yesterday. Today he arrives with normal vital signs except for some tachycardia. An IV was established where he did receive a L of normal saline. Lab results do returned with reassuring findings. His white count is in normal range as is his lactate level. Blood cultures are acquired. The patient was not able to provide urine and till late in his stay here. He did receive a g of Rocephin intravenously. Given 2 falls that happened today without any particular injury it seems reasonable to bring the patient in overnight as was recommended last night. I did speak with Dr. Pierce in this regard and she accepts him for further ev aluation and treatment. Lab Data Labs: Lab Results 09/01/22 Range/Units 19:10 WBC 8.50 (4.50-11.00) K/uL RBC 3.88 L (4.30-5.90) m/uL Hgb 11.5 L (13.5-17.5) gm/dL Hct 35.7 L (37.0-53.0) % MCV 92 (80-100) fL MCH 30 (26-34) pg MCHC 32 (32-36) gm/dL RDW Coeff of Kevyn 14.1 (11.5-15.5) % Plt Count 162 (140-440) K/uL Neut % (Auto) 91.8 H (42.0-72.0) % Lymph % (Auto) 4.1 L (20-44) % [place] % (Auto) 3.8 (0.0-11.0) % Eos % (Auto) 0.0 (0.0-7.0) % Baso % (Auto) 0.1 (0.0-3.0) % Neut # (Auto) 7.80 H (1.7-7.0) K/uL Lymph # (Auto) 0.30 L (0.90-2.90) K/uL [place] # (Auto) 0.30 (0.00-0.90) K/UL Eos # (Auto) 0.00 (0.00-0.50) K/uL Baso # (Auto) 0.01 (0.00-0.30) K/uL Sodium 132 L (135-149) mmol/L Potassium 3.4 L (3.6-5.1) mmol/L Chloride 101 (96-114) mmol/L Carbon Dioxide 25 (20-32) mmol/L BUN 23 (7-30) mg/dL Creatinine 1.5 (0.5-1.5) mg/dL Estimated Creat Clear 36.10 Estimated GFR 46 ml/min Glucose 133 H (60-115) mg/dL Lactate 0.8 (0.5-1.9) mmol/L Calcium 8.2 L (8.4-10.6) mg/dL Discharge Plan Discharge Clinical Impression: Urinary tract infection Patient Disposition: Admitted As Inpatient Condition: Unchanged Prescriptions: No Action atorvastatin 20 mg tablet 20 mg PO chlorthalidone 25 mg tablet 25 mg PO DAILY levothyroxine 100 mcg tablet 100 mcg PO DAILY amlodipine 5 mg tablet 5 mg PO DAILY lisinopril 40 mg tablet 40 mg PO DAILY Eliquis 5 mg tablet 5 mg PO Q12H abiraterone 250 mg tablet 500 mg PO DAILY Qty: 60 2RF prednisone 5 mg tablet 5 mg PO BID Qty: 60 2RF Follow Up/Referrals: Luke Ricci MD [Primary Care Provider] -
[2022-09-01 19:34] LABS: Lactate* 0.8 mmol/L (0.5-1.9)
[2022-09-01 19:38] LABS: Basophils Absolute Auto 0.01 K/uL (0.00-0.30); Basophils Percent Auto 0.1 % (0.0-3.0); Hematocrit 35.7 % (37.0-53.0); Hemoglobin* 11.5 gm/dL (13.5-17.5); Immature Granulocytes Abs Auto 0.02 K/uL (0.00-0.30); Immature Granulocytes Pct Auto 0.2 %; Lymphocytes Percent Auto 4.1 % (20-44); Mean Corpuscular HGB Conc 32 gm/dL (32-36); Mean Corpuscular Hemoglobin 30 pg (26-34); Mean Corpuscular Volume 92 fL (80-100); Monocytes Percent Auto 3.8 % (0.0-11.0); Neutrophils Percent Auto 91.8 % (42.0-72.0); Platelet Count* 162 K/uL (140-440); RDW Coefficient of Variation % 14.1 % (11.5-15.5); Red Blood Count 3.88 m/uL (4.30-5.90)
[2022-09-01] MEDS: 0.9 % SODIUM CHLORIDE 1000 ml 1,000 ML IV (19:43)
[2022-09-01 19:44] LABS: Slide Review Reflex No
[2022-09-01 19:53] LABS: Chloride* 101 mmol/L (96-114); Potassium* 3.4 mmol/L (3.6-5.1); Sodium* 132 mmol/L (135-149)
[2022-09-01 19:56] LABS: Blood Urea Nitrogen* 23 mg/dL (7-30); Calcium* 8.2 mg/dL (8.4-10.6); Carbon Dioxide* 25 mmol/L (20-32); Creatinine* 1.5 mg/dL (0.5-1.5); Estimated Glomerular Filt Rate 46 ml/min; Glucose* 133 mg/dL (60-115)
[2022-09-01 22:21] LABS: Appearance Urine Clear (Clear); Bilirubin Urine Negative (Negative); Blood Urine 1+ (Negative); Color Urine Yellow (Yellow); Glucose Urine Negative (Negative); Ketones Urine Negative (Negative); Leukocyte Esterase Urine Trace (Negative); Nitrite Urine Negative (Negative); Protein Urine Negative (Negative); Specific Gravity Urine <= 1.005 (1.000-1.030); Urobilinogen Urine 0.2 (0.2-1.0); pH Urine 5.5 (5.0-8.5)
[2022-09-01 22:25] LABS: RBC Urine 0-2 (0-2)
[2022-09-01 22:26] LABS: Squamous Epithelial Cell Urine Moderate (None-Few)
[2022-09-01] MEDS: cefTRIAXone 1 GM in 0.9 % SODIUM CHLORIDE Mini-bag 100 ML IVPB (22:29)
[2022-09-02] VITALS (10 sets, daily range): BP systolic 127–163; BP diastolic 78–104; PULSE 84–106; RESP 12–20; TEMP 36.8–39.2; O2SAT 93–96; BMI 33.5
--- NOTE | 2022-09-02 00:45 | P.CCN_ITS ---
Subjective Subjective Interval history: Pt is an 82 year old seen yesterday in the ED with weakness and a UTI. Pt has a known history of radiation cystitis. Pt elected to forgo admission in order to go home at that time. Pt received 1 gram IV Rocephin prior to discharge and was sent home with po Cipro. Pt has had increased weakness and has fallen twice. Pt uninjured per workup in the ED. Pt restarted on Rocephin tonight and admitted for further evaluation. Objective Objective Data Details: Pt resting comfortably HENT: CL Heart RR Lungs Cl Abd Soft Assessment and Plan Assessment and plan (1) Urinary tract infection: Status: Acute Plan I have reviewed the pt's complete medical record and actually saw him myself and offered him admission last night. We will continue Rocephin IV as well as hydration with potassium. Pt will have repeat labs in the am. May require nursing home social worker consult in the am as well as PT OT assessment. Pt wishes to be a DNR.
[2022-09-02] MEDS: 0.9 % SODIUM CH + KCL 20 mEq/L 1,000 ML 100 ML IV ×3 (04:03→21:52)
[2022-09-02] MEDS: LEVOTHYROXINE 100 MCG TABLET PO (05:51)
--- NOTE | 2022-09-02 05:58 | PC.NURSE ---
Pleasant 82 yo male, he is alert and oriented x 4, on RA, vss, regular diet. Up to floor from ED at 2310, light supper of soup and crackers. NS + KCl ordered @ 100ml/hr. Patient has not complained of pain. Slightly febrile at 0300 vital signs (101.1). Gait is unstable, SBA with GB. Using urinal to void. Fluid intake and output is WNL.
[2022-09-02 06:45] LABS: Basophils Absolute Auto 0.01 K/uL (0.00-0.30); Basophils Percent Auto 0.2 % (0.0-3.0); Hematocrit 32.9 % (37.0-53.0); Hemoglobin* 10.5 gm/dL (13.5-17.5); Immature Granulocytes Abs Auto 0.09 K/uL (0.00-0.30); Immature Granulocytes Pct Auto 1.5 %; Lymphocytes Percent Auto 7.2 % (20-44); Mean Corpuscular HGB Conc 32 gm/dL (32-36); Mean Corpuscular Hemoglobin 30 pg (26-34); Mean Corpuscular Volume 93 fL (80-100); Monocytes Percent Auto 6.2 % (0.0-11.0); Neutrophils Percent Auto 84.9 % (42.0-72.0); Platelet Count* 143 K/uL (140-440); RDW Coefficient of Variation % 14.2 % (11.5-15.5); Red Blood Count 3.53 m/uL (4.30-5.90); White Blood Count* 5.84 K/uL (4.50-11.00)
[2022-09-02 06:46] LABS: Slide Review Reflex No
[2022-09-02 06:49] LABS: Albumin* 2.9 g/dL (3.3-5.0); Chloride* 105 mmol/L (96-114); Potassium* 3.5 mmol/L (3.6-5.1); Sodium* 134 mmol/L (135-149)
[2022-09-02 06:52] LABS: Alanine Aminotransferase* 23 U/L (4-50); Alkaline Phosphatase* 62 U/L (40-150); Aspartate Amino Transferase* 28 U/L (12-35); Bilirubin Total* 0.3 mg/dL (0.1-1.5); Blood Urea Nitrogen* 19 mg/dL (7-30); Carbon Dioxide* 24 mmol/L (20-32); Creatinine* 1.5 mg/dL (0.5-1.5); Estimated Glomerular Filt Rate 46 ml/min; Glucose* 118 mg/dL (60-115); Total Protein* 5.4 g/dL (6.0-8.3)
[2022-09-02 06:53] LABS: Calcium* 7.9 mg/dL (8.4-10.6)
[2022-09-02] MEDS: ACETAMINOPHEN 325 MG TABLET 975 MG PO ×2 (07:42→15:50)
[2022-09-02] MEDS: AMLODIPINE 5 MG TABLET PO (07:43)
--- NOTE | 2022-09-02 08:32 | CRLHL7_ITS ---
For Patients: As a result of the Century Cures Act, medical imaging exams and procedure reports are released immediately into your electronic medical record. You may view this report before your referring provider. If you have questions, please contact your health care provider. INDICATION: Leg pain and swelling. TECHNIQUE: Ultrasound venous duplex lower left extremity. Compression venous exam was performed using cruz-scale, color Doppler, and spectral Doppler analysis. COMPARISON: None. FINDINGS: Deep veins: Nonocclusive thrombus is present in the common frontal, deep femoral, superficial femoral, and peroneal veins. Much of the thrombus burden appears relatively echogenic and chronic. Superficial veins: Greater saphenous vein is fully compressible. No popliteal cyst. 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 However, acute on chronic thrombus is possible. Dictated by Syed Sandra MD @ 09/03/2022 7:58:04 AM (Electronically Signed)
[2022-09-02] MEDS: predniSONE 5 MG TABLET 15 MG PO ×2 (08:54→20:52)
[2022-09-02] MEDS: APIXABAN 5 MG TABLET PO ×2 (08:54→20:52)
[2022-09-02] MEDS: SODIUM CHLORIDE 0.9 % (FLUSH) 10 ML SYRINGE 5 ML IVF ×2 (08:54→20:52)
[2022-09-02] MEDS: lisinopriL 20 MG TABLET 40 MG PO (08:54)
[2022-09-02] MEDS: Abiraterone 250 mg tablet PO (11:56)
--- NOTE | 2022-09-02 14:30 | PM.IMHP1 ---
Hospitalist- H&P: HPI History of Present Illness Date Seen: 09/02/22 Chief complaint: Fever and Fall Narrative: Erin Burch is a 82 year old male history of prostate cancer and radiation proctitis admitted to the hospital with 2 days of illness with fever weakness and falling. Patient reports about 2 days ago he had onset of fever and weakness. He was seen in our emergency department and offered hospital admission. He declined it and went home with a diagnosis of UTI. He was treated with ceftriaxone and discharged on ciprofloxacin. Yesterday he had ongoing fever and had 2 falls at home. Because this he was brought back to the emergency room. He has had previous history of urinary infections. He has been diagnosed with prostate cancer in 2005. He underwent radical prostatectomy. He had biochemical recurrence and went underwent radiation therapy and hormone therapy with good response. Again had biochemical recurrence in 2013 and was started back on intermittent hormonal therapy. In 2019 he had increase in his PSA. He was placed on case index and Lupron again. CT imaging showed retroperitoneal an periaortic lymphadenopathy. In 2021 he was found to have metastatic disease including bone metastases and he was started on Zytiga. Also in the spring of 2021 he had left iliac DVT and pulmonary embolism. He lives with his and has support of family members around. His also has cancer and is relatively frail. The 2 of them have struggled to maintain their independence with the help of family Review of Systems Narrative: Patient reports prior to the last 2 days he was generally doing well. He functions quite independently when his home with his . He has not had any other symptoms of illness. He has not had any chest pain or shortness of breath. No abdominal pain nausea vomiting. Has a tendency towards constipation. No urinary symptoms. Complete review of systems otherwise unremarkable [facility] Medical History (Updated 09/02/22 @ 14:46 by Saran Aguila MD) Weakness ?R53.1 - Weakness (ICD-10) Prostate cancer metastatic to multiple sites ?C61 - Malignant neoplasm of prostate (ICD-10) UTI (urinary tract infection) ?N39.0 - Urinary tract infection, site not specified (ICD-10) Pain of right hip ?M25.551 - Pain in right hip (ICD-10) Malignant neoplasm of prostate (08/2010) ?C61 - Malignant neoplasm of prostate (ICD-10) Constipation ?K59.00 - Constipation, unspecified (ICD-10) Acute pancreatitis (12/26/10) ?K85.90 - Acute pancreatitis without necrosis or infection, unspecified (ICD-10) Acute UTI ?N39.0 - Urinary tract infection, site not specified (ICD-10) Bradycardia ?R00.1 - Bradycardia, unspecified (ICD-10) Left femoral vein DVT ?I82.412 - Acute embolism and thrombosis of left femoral vein (ICD-10) Pulmonary embolism ?I26.99 - Other pulmonary embolism without acute cor pulmonale (ICD-10) Surgical History 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 Mother No problems noted. Social History (Updated 09/02/22 @ 14:39 by Saran Aguila MD) Narrative: He is here with his son Forest who is healthcare power of prosecuting attorney. Code status is DNR. He is a former cigarette smoker, quit in 1979 after 35 pack year history. He does not drink alcohol. Highest level of school completed/degree received: high school graduate Smoking Status: Former smoker Do you use any of these nicotine containing products: None Second hand tobacco smoke exposure: No How often do you have a drink containing alcohol: never How often do you have six or more drinks on one occasion: Never AUDIT-C Alcohol total score: 0 Non-prescribed substance use: denies use Caffeine: Yes service: Yes Meds Home Medications and Allergies Home Medications Medication Instructions Recorded Confirmed Type amlodipine 5 mg tablet 5 mg PO DAILY 11/02/21 09/02/22 History apixaban 5 mg tablet (Eliquis) 5 mg PO Q12H 11/02/21 09/02/22 History levothyroxine 100 mcg tablet 100 mcg PO DAILY 11/02/21 09/02/22 History lisinopril 40 mg tablet 40 mg PO DAILY 11/02/21 09/02/22 History atorvastatin 20 mg tablet 20 mg PO HS 06/05/22 09/02/22 History Allergies Allergy/AdvReac Type Severity Reaction Status Date / Time hydrochlorothiazide Allergy Severe pancreatiti Verified 07/02/22 12:57 s latex Allergy Intermediate rash Verified 07/02/22 12:57 adhesive Allergy Verified 07/02/22 12:57 Exam Narrative: Exam Narrative: He is alert and appears in no obvious distress. Eyes normal. Oropharynx normal. Neck is supple without mass or adenopathy. Respirations are clear to auscultation. Cardiovascular: S1, S2, regular rate and rhythm. No murmur gallop or rub. Abdomen: Bowel sounds active. Abdomen is soft without tenderness or mass. External genitalia normal. Extremities with 3+ edema on the left and trace edema on the right. Intact pedal pulses. He moves all 4 extremities well. Const: Vital Signs, click to edit/add: Vital Signs - 24 hr 09/01/22 18:52 09/01/22 19:46 09/01/22 20:00 Temperature 99.7 F H Pulse Rate 102 H 100 Pulse Rate [Left A pical] Pulse Rate [Pulse Oximeter] 109 H Respiratory Rate 18 Blood Pressure [Le ft Arm] Blood Pressure [Ri ght Upper Arm] 136/70 Pulse Oximetry 91 93 92 Oxygen Delivery Me thod Room Air 09/01/22 20:15 09/01/22 20:30 09/01/22 20:47 Temperature Pulse Rate 99 98 103 H Pulse Rate [Left A pical] Pulse Rate [Pulse Oximeter] Respiratory Rate Blood Pressure [Le ft Arm] Blood Pressure [Ri ght Upper Arm] Pulse Oximetry 93 91 96 Oxygen Delivery Me thod 09/01/22 21:00 09/01/22 21:15 09/01/22 21:30 Temperature Pulse Rate 98 98 100 Pulse Rate [Left A pical] Pulse Rate [Pulse Oximeter] Respiratory Rate Blood Pressure [Le ft Arm] Blood Pressure [Ri ght Upper Arm] Pulse Oximetry 93 94 95 Oxygen Delivery Me thod 09/01/22 21:45 09/01/22 22:02 09/01/22 22:15 Temperature Pulse Rate 99 102 H 98 Pulse Rate [Left A pical] Pulse Rate [Pulse Oximeter] Respiratory Rate Blood Pressure [Le ft Arm] Blood Pressure [Ri ght Upper Arm] Pulse Oximetry 91 95 94 Oxygen Delivery Me thod 09/01/22 22:30 09/01/22 22:45 09/02/22 00:02 Temperature 98.5 F Pulse Rate 100 100 Pulse Rate [Left A pical] Pulse Rate [Pulse Oximeter] Respiratory Rate 12 Blood Pressure [Le ft Arm] 158/104 H Blood Pressure [Ri ght Upper Arm] Pulse Oximetry 95 93 96 Oxygen Delivery Me thod Room Air 09/02/22 00:24 09/02/22 04:10 09/02/22 07:30 Temperature 102.4 F H Pulse Rate Pulse Rate [Left A pical] 106 H Pulse Rate [Pulse Oximeter] Respiratory Rate 12 20 Blood Pressure [Le ft Arm] 127/86 Blood Pressure [Ri ght Upper Arm] Pulse Oximetry 96 93 Oxygen Delivery Me thod Room Air Room Air 09/02/22 07:42 09/02/22 08:52 09/02/22 12:21 Temperature 102.5 F H 98.9 F 98.3 F Pulse Rate Pulse Rate [Left A pical] 89 Pulse Rate [Pulse Oximeter] Respiratory Rate 20 Blood Pressure [Le ft Arm] 162/82 H Blood Pressure [Ri ght Upper Arm] Pulse Oximetry 95 Oxygen Delivery Me thod Room Air Documenting provider has reviewed patient's vital signs: yes Hospitalist - H&P: Result Labs Labs: Short CBC 09/01/22 09/02/22 Range/Units 19:10 05:39 WBC 8.50 5.84 (4.50-11.00) K/uL Hgb 11.5 L 10.5 L (13.5-17.5) gm/dL Hct 35.7 L 32.9 L (37.0-53.0) % Plt Count 162 143 (140-440) K/uL BMP 09/01/22 09/02/22 19:10 05:39 Sodium 132 L 134 L Potassium 3.4 L 3.5 L Chloride 101 105 Carbon Dioxide 25 24 BUN 23 19 Creatinine 1.5 1.5 Glucose 133 H 118 H Calcium 8.2 L 7.9 L Liver Function 05/14/23 Range/Units 05:39 Total Bilirubin 0.3 (0.1-1.5) mg/dL AST 28 (12-35) U/L ALT 23 (4-50) U/L Alkaline Phosphatase 62 (40-150) U/L Albumin 2.9 L (3.3-5.0) g/dL Urine 09/01/22 Range/Units 10:10 Urine Color Yellow (Yellow) Urine Appearance Clear (Clear) Urine pH 5.5 (5.0-8.5) Ur Specific [place] <= 1.005 (1.000-1.030) Urine Protein Negative (Negative) Urine Glucose (UA) Negative (Negative) Assessment and Plan Assessment and plan (1) Sepsis: Problem comment: On initial presentation to the emergency department on August 31 he had fever, tachycardia, hypotension, elevated lactate. Likely due to urinary infection. Cultures pending. Continue ceftriaxone. Status: Acute (2) Prostate cancer metastatic to multiple sites: Problem comment: Continue Zytiga and outpatient follow-up with Oncology Status: Acute (3) Urinary tract infection: Problem comment: On ceftriaxone. Pending cultures and clinical course Status: Acute (4) Edema of left lower extremity: Problem comment: This is a chronic problem for him but he reports it being acutely worse. Obtain ultrasound. Compression stockings. Continue anticoagulation. Status: Acute (5) Left femoral vein DVT: Problem comment: DVT and PE diagnosed 06/2021 Status: Acute (6) Pulmonary embolism: Problem comment: June 2021 Anticoagulation with eliquis. Status: Acute (7) Weakness: Problem comment: Acute on chronic weakness associated with deconditioning and falls. Likely due to his acute illness. Patient's goal is to get stronger and return home with his . Status: Acute Plan Admit to the hospital for IV antibiotics, resuscitation of sepsis, therapy for strengthening. Monitor for complications of acute illness. Total time spent today is 75 minutes, 50 minutes in coordination of care and discussing with patient, son and other providers ongoing evaluation management of sepsis, UTI, weakness
--- NOTE | 2022-09-02 15:40 | PC.NURSE ---
Patient [place], pleasant, calm, A&0 times 4. Son Forest spoke with Dr. Aguila and medications clarified. Pt had no dysphagia w/meds. He takes 2-3 pills at a time. Prefers prednisone with chocolate pudding. Adequate I & 0. Hx of prostate CA and voids frequently by standing at bedside using urinal. Post void bladder scan indicated pt is not retaining urine in his bladder, 3 scans completed with 10ml, 6ml and 1ml indicated. Maintenance IVF NS with 20 KCL infusing at 100cc/hr. Lucy and son Forest present for PT evaluation this afternoon, pt walked in hallway with SBA & GB. Awaiting US of lower extremity this afternoon, diagnostic imaging aware. Wound care to small skin tear on left upper forearm, cleansed with Vasche, patted dry and small tegaderm applied to site. Report to Yeni Bañuelos RN for evening shift.
--- NOTE | 2022-09-02 18:33 | PC.NURSE ---
Shift [id number]- Patient denies pain. He is [place]. He uses urinal standing at bedside, often setting off bed alarm to do so. Appetite intact.
[2022-09-02] MEDS: ATORVASTATIN 10 MG TABLET 20 MG PO (20:52)
[2022-09-03 00:04] VITALS: BP 146/70; PULSE 82; PULSE 84; RESP 12; RESP 14; TEMP 36.9; O2SAT 96
[2022-09-03] MEDS: cefTRIAXone 1 GM in 0.9 % SODIUM CHLORIDE Mini-bag 100 ML IVPB (00:15)
[2022-09-03 03:00] VITALS: BP 176/97; PULSE 85; RESP 18; TEMP 36.8; O2SAT 96
[2022-09-03] MEDS: LEVOTHYROXINE 100 MCG TABLET PO (06:01)
[2022-09-03] MEDS: Abiraterone 250 mg tablet PO (06:13)
--- NOTE | 2022-09-03 06:30 | PC.NURSE ---
Pleasant 82 yo male, he is alert and oriented x 4, on RA, vss, regular diet, NS + KCl ordered @ 100ml/hr. Patient has not complained of pain, remains afebrile, Using urinal to void, urinates frequently. Fluid intake and output is WNL. Ceftriaxone currently as abx.
[2022-09-03 07:00] VITALS: BP 170/79; PULSE 96; RESP 18; TEMP 36.9; O2SAT 97
[2022-09-03] MEDS: SODIUM CHLORIDE 0.9 % (FLUSH) 10 ML SYRINGE 5 ML IVF (08:36)
[2022-09-03] MEDS: 0.9 % SODIUM CH + KCL 20 mEq/L 1,000 ML 100 ML IV (08:36)
[2022-09-03] MEDS: ACETAMINOPHEN 325 MG TABLET 975 MG PO (08:36)
[2022-09-03] MEDS: predniSONE 5 MG TABLET 15 MG PO (08:37)
[2022-09-03] MEDS: APIXABAN 5 MG TABLET PO (08:37)
[2022-09-03] MEDS: AMLODIPINE 5 MG TABLET PO (08:37)
[2022-09-03] MEDS: lisinopriL 20 MG TABLET 40 MG PO (08:37)
[2022-09-03 08:52] LABS: Hematocrit 35.4 % (37.0-53.0); Hemoglobin* 11.5 gm/dL (13.5-17.5); Immature Granulocytes Abs Auto 0.03 K/uL (0.00-0.30); Immature Granulocytes Pct Auto 0.5 %; Lymphocytes Percent Auto 9.6 % (20-44); Mean Corpuscular HGB Conc 33 gm/dL (32-36); Mean Corpuscular Hemoglobin 30 pg (26-34); Mean Corpuscular Volume 91 fL (80-100); Monocytes Percent Auto 3.7 % (0.0-11.0); Neutrophils Percent Auto 86.2 % (42.0-72.0); Platelet Count* 175 K/uL (140-440); RDW Coefficient of Variation % 13.5 % (11.5-15.5); Red Blood Count 3.89 m/uL (4.30-5.90); White Blood Count* 6.02 K/uL (4.50-11.00)
[2022-09-03 08:54] LABS: Slide Review Reflex No
[2022-09-03 09:13] LABS: Chloride* 107 mmol/L (96-114); Sodium* 137 mmol/L (135-149)
[2022-09-03 09:14] LABS: Potassium* 3.8 mmol/L (3.6-5.1)
[2022-09-03 09:16] LABS: Creatinine* 1.2 mg/dL (0.5-1.5); Est. Creatinine Clearance* 45.13; Estimated Glomerular Filt Rate 60 ml/min
[2022-09-03 09:17] LABS: Blood Urea Nitrogen* 17 mg/dL (7-30); Calcium* 8.4 mg/dL (8.4-10.6); Carbon Dioxide* 22 mmol/L (20-32); Glucose* 245 mg/dL (60-115)
[2022-09-03 09:31] LABS: C Reactive Protein* 16.3 mg/dL (0.5-1.0)
[2022-09-03 09:56] VITALS: PULSE 100; RESP 18; TEMP 36.8
--- NOTE | 2022-09-03 11:18 | PC.NURSE ---
Patient drowsy, would awaken to verbal stimuli. Pain to left hip reported 8/10, patient hesitant to take medication, did agree to take dilaudid prior to transport. CMS to left upper extremity intact, left hand edematous, patient has moderate weakness to hand. Patient able to follow directions and wiggle left fingers. Left lower extremity CMS intact, patient able to wiggle feet, pulse palpable and cap refill <3 seconds. Weak movement to left lower extremity. Oxygen removed and patient maintaining O2 sats >90%. Transfers with ruthy lift. Assisted with personal cares, incontinent of bladder. Nurse to nurse report given to Maria L at [facility] at 0930. Patient discharged at 1025 via stretcher and non emergent EMS. Daughter Pam updated with discharge and will meet patient at [facility].
--- NOTE | 2022-09-03 11:32 | PC.NURSE ---
Patient alert and oriented x 3, denies any pain. Lung sounds clear and bowel sounds active x 4 quadrants. BLE edema, knee high stockings applied. Patient denies any pain or burning with urination. Urine pale yellow, clear and normal odor. SBA with ambulation. Patient discharged from unit at 1105 accompanied by son and daughter in law. Assisted off unit in wheelchair and transported home via private vehicle.
--- NOTE | 2022-09-03 12:26 | PM.DS1 ---
DS: Providers Provider Date Seen: 09/03/22 Date of admission: 09/02/22 08:27 Primary care physician: Luke Ricci MD Admitting Clinician: Nelli Pierce MD Attending Physician on discharge: Saran Aguila MD Date of Discharge: 09/03/22 DS: Diagnosis Discharge Diagnosis (1) Sepsis: Status: Acute Problem details: On initial presentation to the emergency department on August 31 he had fever, tachycardia, hypotension, elevated lactate. Likely due to urinary infection. Cultures pending. Continue ceftriaxone. Signs and symptoms of sepsis have resolved. (2) Prostate cancer metastatic to multiple sites: Status: Acute Problem details: Continue Zytiga and outpatient follow-up with Oncology (3) Urinary tract infection: Status: Acute Problem details: On ceftriaxone. Culture growing pansensitive E coli. Switch to cephalexin 500 t.i.d. for 1 week (4) Edema of left lower extremity: Status: Acute Problem details: This is a chronic problem for him but he reports it being acutely worse. Extremity ultrasound shows chronic, old nonocclusive clot. (5) Left femoral vein DVT: Status: Acute Problem details: DVT and PE diagnosed 06/2021. Continue anticoagulation (6) Pulmonary embolism: Status: Acute Problem details: June 2021 Anticoagulation with eliquis. (7) Weakness: Status: Acute Problem details: Acute on chronic weakness associated with deconditioning and falls. Likely due to his acute illness. Patient's goal is to get stronger and return home with his . Today he is ambulating without assistance and doing very well. DS: Summary Hospital Course Hospital Course: Erin Burch is a 82 year old male history of prostate cancer and radiation proctitis admitted to the hospital with 2 days of illness with fever weakness and falling.? Patient reports about 2 days ago he had onset of fever and weakness.? He was seen in our emergency department and offered hospital admission.? He declined it and went home with a diagnosis of UTI.? He was treated with ceftriaxone and discharged on ciprofloxacin.? Yesterday he had ongoing fever and had 2 falls at home.? Because this he was brought back to the emergency room.? He has had previous history of urinary infections. He has been diagnosed with prostate cancer in 2005.? He underwent radical prostatectomy.? He had biochemical recurrence and went underwent radiation therapy and hormone therapy with good response.? Again had biochemical recurrence in 2013 and was started back on intermittent hormonal therapy.? In 2019 he had increase in his PSA.? He was placed on case index and Lupron again.? CT imaging showed retroperitoneal an periaortic lymphadenopathy.? In 2021 he was found to have metastatic disease including bone metastases and he was started on Zytiga. Also in the spring of 2021 he had left iliac DVT and pulmonary embolism. He lives with his and has support of family members around.? His also has cancer and is relatively frail.? The 2 of them have struggled to maintain their independence with the help of family. He is on chronic prednisone 5 mg b.i.d.. Received stress dose steroids, triple his daily dose while hospitalized On initial admission the hospital he was profoundly weak, unable to ambulate independently, eating very little food or drinking fluids. He has subsequently had marked improvement. Now ambulating independently in the hallway. Eating and drinking normally. Fever has resolved. Status at Discharge Functional status at discharge: independent ambulation Overall status at discharge: patient is back to baseline Time Spent with Patient Time attestation: Total time spent providing and/or coordinating discharge services: 40 minutes Time spent: Greater than 30 minutes Exam Narrative: Exam Narrative: He is alert and appears in no distress. Speech is normal. He is oriented to circumstances. I visit with the patient and with his son. Respirations are clear to auscultation. No wheezing rales rhonchi. Cardiovascular: S1, S2, regular rate and rhythm. Abdomen bowel sounds are present. Abdomen is protuberant and soft. He is observed to walk in the hallway with good balance and appears safe with ambulation. Const: Vital Signs, click to edit/add: Vital Signs - 24 hr 09/02/22 15:54 09/02/22 19:00 09/02/22 21:58 Temperature 99.2 F 98.9 F Pulse Rate Pulse Rate [Left A pical] 89 84 84 Respiratory Rate 18 12 14 Blood Pressure [Le ft Arm] 151/78 H 163/93 H Pulse Oximetry 95 95 Oxygen Delivery Me thod Room Air Room Air 09/03/22 00:04 09/03/22 00:04 09/03/22 03:00 Temperature 98.4 F 98.2 F Pulse Rate Pulse Rate [Left A pical] 84 82 85 Respiratory Rate 14 12 18 Blood Pressure [Le ft Arm] 146/70 H 176/97 H Pulse Oximetry 96 96 Oxygen Delivery Me thod Room Air Room Air 09/03/22 07:00 09/03/22 09:56 Temperature 98.4 F 98.2 F Pulse Rate 100 Pulse Rate [Left A pical] 96 Respiratory Rate 18 18 Blood Pressure [Le ft Arm] 170/79 H Pulse Oximetry 97 Oxygen Delivery Me thod Room Air Documenting provider has reviewed patient's vital signs: yes DS: Data Data Completed and Pending Labs on day of discharge: Labs from last 24 hours 09/03/22 08:42 WBC 6.02 RBC 3.89 L Hgb 11.5 L Hct 35.4 L MCV 91 MCH 30 MCHC 33 RDW Coeff of Kevyn 13.5 Plt Count 175 Neut % (Auto) 86.2 H Lymph % (Auto) 9.6 L [place] % (Auto) 3.7 Eos % (Auto) 0.0 Baso % (Auto) 0.0 Neut # (Auto) 5.20 Lymph # (Auto) 0.60 L [place] # (Auto) 0.20 Eos # (Auto) 0.00 Baso # (Auto) 0.00 Sodium 137 Potassium 3.8 Chloride 107 Carbon Dioxide 22 BUN 17 Creatinine 1.2 Estimated Creat Clear 45.13 Estimated GFR 60 Glucose 245 H Calcium 8.4 C-Reactive Protein 16.3 H Preliminary micro results at discharge 09/01/22 19:47 Blood Culture - Preliminary Blood NO GROWTH AFTER 24 HOURS 09/01/22 19:10 Blood Culture - Preliminary Blood NO GROWTH AFTER 24 HOURS Discharge Plan Discharge Disposition: Home, Self-Care Date of Admission: 09/02/22 08:27 Attending Provider on Discharge: Saran Aguila Primary Care Provider: Luke Ricci Condition: Unchanged Anticipated Discharge Date/Time: 09/03/22 09:04 Discharge Medications: New cephalexin 500 mg capsule 500 mg PO TID Qty: 21 0RF Continued atorvastatin 20 mg tablet 20 mg PO HS levothyroxine 100 mcg tablet 100 mcg PO DAILY amlodipine 5 mg tablet 5 mg PO DAILY lisinopril 40 mg tablet 40 mg PO DAILY Eliquis 5 mg tablet 5 mg PO Q12H abiraterone 250 mg tablet 500 mg PO DAILY Qty: 60 2RF prednisone 5 mg tablet 5 mg PO BID Qty: 60 2RF Discharge Orders: Discharge Order (Routine); Ordered 09/03/22 Ordered By: Saran Aguila Patient Education: Cephalexin (By mouth), Urinary Tract Infection in Men (DC) Additional Instructions: Stop taking ciprofloxacin, the antibiotic prescribed in the emergency room. Start taking cephalexin instead. Activity Level: No Restrictions Discharge Diet: Regular Follow Up Appointments: Luke Ricci MD [Primary Care Provider] - 09/10/22 11:45 am ([facility] follow up with Dr. Ricci.) Forms: [employer] Info Instructions
== END 2022-09-03 11:05 | disposition home or self-care (01) | DRG 872 ==
LOC: ED 22:18 → MEDSURG 22:47
PROVIDERS: Internal Medicine; Admitting Provider Family Medicine; Emergency Provider Emergency Medicine Emergency Medical Services; PCP Family Medicine; Visit Provider Family Medicine
DX: A41.9 Sepsis, unspecified organism (principal); N39.0 Urinary tract infection, site not specified; C77.2 Secondary and unspecified malignant neoplasm of intra-abdominal lymph nodes; C79.51 Secondary malignant neoplasm of bone; I82.512 Chronic embolism and thrombosis of left femoral vein; I82.552 Chronic embolism and thrombosis of left peroneal vein; R60.0 Localized edema; Z86.711 Personal history of pulmonary embolism; Z79.01 Long term (current) use of anticoagulants; Z91.81 History of falling; C61 Malignant neoplasm of prostate; R53.1 Weakness; Z85.46 Personal history of malignant neoplasm of prostate; Z90.79 Acquired absence of other genital organ(s)
CPT/HCPCS: 36415; 51798; 80048; 80053; 81001; 83605; 85025; 86140; 87040; 93971; 97161; 97165; 99284; 99285; A9270; G0378; J0696; J7030; J7512

== ENCOUNTER 2022-12-03 08:21 | Outpatient (RCR) | payer MEDICARE, SELFPAY ==
[2022-06-20 10:25] LABS: Basophils Absolute Auto 0.01 K/uL (0.00-0.30); Basophils Percent Auto 0.1 % (0.0-3.0); Eosinophils Absolute Auto 0.07 K/uL (0.00-0.50); Hematocrit 37.9 % (37.0-53.0); Hemoglobin* 12.4 gm/dL (13.5-17.5); Immature Granulocytes Abs Auto 0.02 K/uL (0.00-0.30); Immature Granulocytes Pct Auto 0.3 %; Lymphocytes Percent Auto 17.8 % (20-44); Mean Corpuscular HGB Conc 33 gm/dL (32-36); Mean Corpuscular Hemoglobin 30 pg (26-34); Mean Corpuscular Volume 92 fL (80-100); Monocytes Percent Auto 6.6 % (0.0-11.0); Neutrophils Percent Auto 74.2 % (42.0-72.0); Platelet Count* 222 K/uL (140-440); RDW Coefficient of Variation % 13.3 % (11.5-15.5); Red Blood Count 4.14 m/uL (4.30-5.90); White Blood Count* 6.98 K/uL (4.50-11.00)
[2022-06-20 10:34] LABS: Slide Review Reflex No
[2022-06-20 10:40] LABS: Albumin* 3.7 g/dL (3.3-5.0); Chloride* 105 mmol/L (96-114)
[2022-06-20 10:41] LABS: Potassium* 4.1 mmol/L (3.6-5.1); Sodium* 138 mmol/L (135-149)
[2022-06-20 10:42] LABS: Cholesterol* 141 mg/dL (90-199)
[2022-06-20 10:43] LABS: Alanine Aminotransferase* 29 U/L (4-50); Alkaline Phosphatase* 65 U/L (40-150); Aspartate Amino Transferase* 24 U/L (12-35); Bilirubin Total* 0.5 mg/dL (0.1-1.5); Blood Urea Nitrogen* 23 mg/dL (7-30); Carbon Dioxide* 26 mmol/L (20-32); Creatinine* 1.2 mg/dL (0.5-1.5); Estimated Glomerular Filt Rate 60 ml/min; Glucose* 166 mg/dL (60-115); HDL Cholesterol* 57 mg/dL (>=40); LDL Cholesterol Calculated 49 mg/dL (<100); Total Protein* 6.2 g/dL (6.0-8.3); Triglycerides* 174 mg/dL (40-149)
[2022-06-20 10:44] LABS: Calcium* 8.7 mg/dL (8.4-10.6)
--- NOTE | 2022-06-21 13:08 | ONC.NURNOTE ---
Lab results called to as stable Erin reported no concerns or changes yesterday when here for lab draw
[2022-06-21 14:06] LABS: PSA Diagnostic* < 0.06 ng/mL (0.10-4.00)
--- NOTE | 2022-06-28 14:14 | URNOTE ---
Received request for prior auth. Leuprolide ([id number]) has been approved 06/28/2022-06/29/23. Auth #[id number]
[2022-10-01 13:54] LABS: Basophils Absolute Auto 0.01 K/uL (0.00-0.30); Basophils Percent Auto 0.1 % (0.0-3.0); Eosinophils Percent Auto 1.4 % (0.0-7.0); Hematocrit 36.4 % (37.0-53.0); Hemoglobin* 11.7 gm/dL (13.5-17.5); Immature Granulocytes Abs Auto 0.02 K/uL (0.00-0.30); Immature Granulocytes Pct Auto 0.3 %; Lymphocytes Percent Auto 16.9 % (20-44); Mean Corpuscular HGB Conc 32 gm/dL (32-36); Mean Corpuscular Hemoglobin 30 pg (26-34); Mean Corpuscular Volume 93 fL (80-100); Monocytes Percent Auto 6.2 % (0.0-11.0); Neutrophils Percent Auto 75.1 % (42.0-72.0); Platelet Count* 192 K/uL (140-440); RDW Coefficient of Variation % 14.1 % (11.5-15.5); Red Blood Count 3.93 m/uL (4.30-5.90)
[2022-10-01 13:57] LABS: Slide Review Reflex No
[2022-10-01 15:02] LABS: Albumin* 3.7 g/dL (3.3-5.0); Chloride* 103 mmol/L (96-114); Potassium* 3.5 mmol/L (3.6-5.1); Sodium* 139 mmol/L (135-149)
[2022-10-01 15:05] LABS: Alanine Aminotransferase* 29 U/L (4-50); Alkaline Phosphatase* 74 U/L (40-150); Aspartate Amino Transferase* 31 U/L (12-35); Bilirubin Total* 0.4 mg/dL (0.1-1.5); Blood Urea Nitrogen* 29 mg/dL (7-30); Calcium* 8.5 mg/dL (8.4-10.6); Carbon Dioxide* 28 mmol/L (20-32); Creatinine* 1.5 mg/dL (0.5-1.5); Estimated Glomerular Filt Rate 46 ml/min; Glucose* 189 mg/dL (60-115); Total Protein* 6.2 g/dL (6.0-8.3)
[2022-10-01 15:34] LABS: PSA Diagnostic* < 0.06 ng/mL (0.10-4.00)
--- NOTE | 2022-11-06 12:34 | ONC.NURNOTE ---
Addendum entered by Zoey Medley RN 11/06/22 13:39: global technical writer moved appt up to early Dec- for Erin to further discuss with provider other options for prostate treatment that does not include taking prednisone Original Note: Erin stopped by yesterday to report recent med changes for BP and need to start metformin (per Dr Ricci) patient is requesting to stop his prednisone global technical writer reminded Erin that the prednisone is part of the the abiraterone dosing for his prostate cancer will let Oncology aware of patient's concerns
[2022-11-22 14:31] LABS: Basophils Absolute Auto 0.01 K/uL (0.00-0.30); Basophils Percent Auto 0.1 % (0.0-3.0); Eosinophils Absolute Auto 0.04 K/uL (0.00-0.50); Eosinophils Percent Auto 0.5 % (0.0-7.0); Hematocrit 33.9 % (37.0-53.0); Immature Granulocytes Abs Auto 0.02 K/uL (0.00-0.30); Immature Granulocytes Pct Auto 0.2 %; Lymphocytes Percent Auto 12.2 % (20-44); Mean Corpuscular HGB Conc 32 gm/dL (32-36); Mean Corpuscular Hemoglobin 30 pg (26-34); Mean Corpuscular Volume 92 fL (80-100); Platelet Count* 197 K/uL (140-440); RDW Coefficient of Variation % 13.6 % (11.5-15.5); White Blood Count* 8.01 K/uL (4.50-11.00)
[2022-11-22 14:40] LABS: Slide Review Reflex No
[2022-11-22 14:42] VITALS: BP 103/61; PULSE 86
--- NOTE | 2022-11-22 14:43 | PC.NURSE ---
Pt was present at [facility] today for lab work. BP done: 103/61, pulse: 86
[2022-11-22 14:59] LABS: Albumin* 3.8 g/dL (3.3-5.0); Chloride* 102 mmol/L (96-114); Sodium* 136 mmol/L (135-149)
[2022-11-22 15:01] LABS: Aspartate Amino Transferase* 25 U/L (12-35); Bilirubin Total* 0.4 mg/dL (0.1-1.5); Carbon Dioxide* 27 mmol/L (20-32); Creatinine* 1.8 mg/dL (0.5-1.5); Est. Creatinine Clearance* 30.08; Estimated Glomerular Filt Rate 37 ml/min; Total Protein* 6.4 g/dL (6.0-8.3)
[2022-11-22 15:02] LABS: Alanine Aminotransferase* 24 U/L (4-50); Alkaline Phosphatase* 73 U/L (40-150); Blood Urea Nitrogen* 49 mg/dL (7-30); Calcium* 8.6 mg/dL (8.4-10.6); Glucose* 183 mg/dL (60-115)
[2022-12-03 10:20] LABS: Chloride* 105 mmol/L (96-114); Sodium* 139 mmol/L (135-149)
[2022-12-03 10:21] LABS: Potassium* 3.6 mmol/L (3.6-5.1)
[2022-12-03 10:23] LABS: Carbon Dioxide* 28 mmol/L (20-32); Creatinine* 1.5 mg/dL (0.5-1.5); Estimated Glomerular Filt Rate 46 ml/min
[2022-12-03 10:24] LABS: Blood Urea Nitrogen* 36 mg/dL (7-30); Calcium* 8.4 mg/dL (8.4-10.6); Glucose* 138 mg/dL (60-115)
== END 2022-12-17 23:59 | disposition home or self-care (01) ==
LOC: CCIC 08:21
PROVIDERS: Clinical Nurse Specialist; Internal Medicine Hematology & Oncology; Internal Medicine Medical Oncology; PCP Family Medicine; Referring Provider Family Medicine; Visit Provider Physician Assistant
DX: C61 Malignant neoplasm of prostate (principal)
CPT/HCPCS: 36415; 80048; 80053; 80061; 84153; 85025; 96401; 99212; 99214; 99215; J9217

== ENCOUNTER 2023-02-06 05:44 | Emergency (ER) | payer MEDICARE, SELFPAY ==
[2023-02-06] VITALS (7 sets, daily range): BP systolic 204; BP diastolic 86; PULSE 67–79; RESP 26; TEMP 36.1; O2SAT 92–97
--- NOTE | 2023-02-06 06:03 | ED.GENADULT ---
HPI - General Adult General Time Seen by Provider: 06:03 <Edmund Ty MD - Last Filed: 02/11/23 17:00> Date Seen: 02/06/23 <Edmund Ty MD - Last Filed: 02/11/23 17:00> Chief complaint: Shortness of Breath/Dyspnea <Edmund Ty MD - Last Filed: 02/11/23 17:00> Stated complaint: trouble breathing <Edmund Ty MD - Last Filed: 02/11/23 17:00> Time Seen by Provider: 02/06/23 06:12 <Edmund Ty MD - Last Filed: 02/11/23 17:00> Source: patient, family, RN notes reviewed and old records reviewed <Edmund Ty MD - Last Filed: 02/11/23 17:00> Mode of arrival: ambulatory <Edmund Ty MD - Last Filed: 02/11/23 17:00> Limitations: no limitations <Edmund Ty MD - Last Filed: 02/11/23 17:00> History of Present Illness HPI narrative: 83-year-old male with history of prostate cancer who presents today with lower extremity swelling as 1 week of wheezing. Patient was diagnosed with a blood clot in the left leg several months ago and is on Eliquis. Increased wheezing and shortness of breath for the last week, seems to be worse at night with some cough. Denies chest pain, nausea, vomiting, diarrhea. Patient has been on prednisone in the past, not currently. Patient is currently on furosemide 20 mg daily, labetalol, lisinopril, metformin. <Edmund Ty MD - Last Filed: 02/11/23 17:00> Related Data Home medications: Home Medications Medication Instructions Recorded Confirmed apixaban 5 mg tablet (Eliquis) 5 mg PO Q12H 11/02/21 02/05/23 levothyroxine 100 mcg tablet 100 mcg PO DAILY 11/02/21 02/05/23 lisinopril 40 mg tablet 40 mg PO DAILY 11/02/21 02/05/23 atorvastatin 20 mg tablet 20 mg PO HS 06/05/22 02/05/23 doxazosin 2 mg tablet 2 mg PO DAILY 11/06/22 02/05/23 furosemide 20 mg tablet 20 mg PO DAILY 11/06/22 02/05/23 blood sugar diagnostic (Accu-Chek #10 ea 12/04/22 02/05/23 Guide test strips) blood-glucose meter (Accu-Chek #1 ea 12/04/22 02/05/23 Guide Me Glucose Meter) lancets (Accu-Chek Softclix #100 ea 12/04/22 02/05/23 Lancets) metformin 500 mg tablet,extended 500 mg PO BID 12/04/22 02/05/23 release 24 hr potassium chloride 10 mEq 10 meq PO DAILY 12/04/22 02/05/23 tablet,extended release(part/cryst) labetalol 100 mg tablet 100 mg PO BID 12/27/22 02/05/23 Previous Rx's Medication Instructions Recorded abiraterone 250 mg tablet 500 mg (2 x 250 mg) PO DAILY #60 04/17/22 tabs prednisone 5 mg tablet 5 mg PO BID #60 tabs 04/18/22 enzalutamide 40 mg capsule (Xtandi) 120 mg (3 x 40 mg) PO QDAY #90 caps 12/26/22 <Edmudn Ty MD - Last Filed: 02/11/23 17:00> Allergies/adverse reactions: Allergies Allergy/AdvReac Type Severity Reaction Status Date / Time hydrochlorothiazide Allergy Severe pancreatiti Verified 02/06/23 07:57 s latex Allergy Intermediate rash Verified 02/06/23 07:57 adhesive Allergy Verified 02/06/23 07:57 atenolol AdvReac Mild bradycardia Verified 02/06/23 07:57 amlodipine AdvReac Unknown edema Verified 02/06/23 07:57 carvedilol AdvReac bradycardia Verified 02/06/23 07:57 <Edmund Ty MD - Last Filed: 02/11/23 17:00> [facility] Medical History: Medical History (Updated 02/06/23 @ 09:02 by Ravi Aguilar MD) Weakness ?R53.1 - Weakness (ICD-10) Prostate cancer metastatic to multiple sites ?C61 - Malignant neoplasm of prostate (ICD-10) UTI (urinary tract infection) ?N39.0 - Urinary tract infection, site not specified (ICD-10) Pain of right hip ?M25.551 - Pain in right hip (ICD-10) Malignant neoplasm of prostate (08/2010) ?C61 - Malignant neoplasm of prostate (ICD-10) Constipation ?K59.00 - Constipation, unspecified (ICD-10) Acute pancreatitis (12/26/10) ?K85.90 - Acute pancreatitis without necrosis or infection, unspecified (ICD-10) Acute UTI ?N39.0 - Urinary tract infection, site not specified (ICD-10) Bradycardia ?R00.1 - Bradycardia, unspecified (ICD-10) Left femoral vein DVT ?I82.412 - Acute embolism and thrombosis of left femoral vein (ICD-10) Pulmonary embolism ?I26.99 - Other pulmonary embolism without acute cor pulmonale (ICD-10) <Edmund Ty MD - Last Filed: 02/11/23 17:00> Surgical History: Surgical History 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 Mother No problems noted. <Edmund Ty MD - Last Filed: 02/11/23 17:00> Social History: Social History (Reviewed 02/05/23 @ 08:50 by Jerri Sher ~ [facility], [facility]) Narrative: He is here with his son Forest who is healthcare power of assistant attorney general. Code status is DNR. He is a former cigarette smoker, quit in 1979 after 35 pack year history. He does not drink alcohol. Highest level of school completed/degree received: high school graduate Smoking Status: Former smoker Do you use any of these nicotine containing products: None Second hand tobacco smoke exposure: No How often do you have a drink containing alcohol: never How often do you have six or more drinks on one occasion: Never AUDIT-C Alcohol total score: 0 Non-prescribed substance use: denies use Caffeine: Yes service: Yes <Edmund Ty MD - Last Filed: 02/11/23 17:00> Exam Narrative: Exam Narrative: General: Well-developed and well-nourished, no acute distress Head: Atraumatic and normocephalic Eyes: Pupils are equal reactive, extraocular motions intact, conjunctiva clear ENT: External nose and ears are normal, posterior pharynx without erythema or exudate Neck: No midline cervical tenderness, full spontaneous range of motion the neck, trachea midline, no adenopathy Heart: Regular rate and rhythm no murmurs or thrills Lungs: Diminished in the bases, no expiratory or inspiratory wheezes, audible upper airway wheezing Abdomen: Soft, nontender, nondistended with active bowel sounds Musculoskeletal: No tenderness, deformity, bilateral lower extremity edema markedly worse on left Neurologic: Awake, alert, and oriented x3, no gross focal neurologic deficits, cranial nerves intact as tested Psych: Mood and affect are appropriate Skin: No rashes <Edmund Ty MD - Last Filed: 02/11/23 17:00> Const: Vital Signs, click to edit/add: Vital Signs - 24 hr 02/06/23 05:50 02/06/23 07:00 02/06/23 07:15 Temperature 96.9 F L Pulse Rate 67 72 Pulse Rate [Left P ulse Oximeter] 76 Respiratory Rate 26 H Blood Pressure [Ri ght Upper Arm] 204/86 H Pulse Oximetry 97 94 95 Oxygen Delivery Me thod Room Air 02/06/23 07:30 02/06/23 07:53 02/06/23 08:00 Temperature Pulse Rate 67 70 70 Pulse Rate [Left P ulse Oximeter] Respiratory Rate Blood Pressure [Ri ght Upper Arm] Pulse Oximetry 92 93 94 Oxygen Delivery Me thod 02/06/23 08:15 Temperature Pulse Rate 79 Pulse Rate [Left P ulse Oximeter] Respiratory Rate Blood Pressure [Ri ght Upper Arm] Pulse Oximetry 95 Oxygen Delivery Me thod <Edmund Ty MD - Last Filed: 02/11/23 17:00> Vital Signs, click to edit/add: Vital Signs - 24 hr 02/06/23 05:50 02/06/23 07:00 02/06/23 07:15 Temperature 96.9 F L Pulse Rate 67 72 Pulse Rate [Left P ulse Oximeter] 76 Respiratory Rate 26 H Blood Pressure [Ri ght Upper Arm] 204/86 H Pulse Oximetry 97 94 95 Oxygen Delivery Me thod Room Air 02/06/23 07:30 02/06/23 07:53 02/06/23 08:00 Temperature Pulse Rate 67 70 70 Pulse Rate [Left P ulse Oximeter] Respiratory Rate Blood Pressure [Ri ght Upper Arm] Pulse Oximetry 92 93 94 Oxygen Delivery Me thod 02/06/23 08:15 Temperature Pulse Rate 79 Pulse Rate [Left P ulse Oximeter] Respiratory Rate Blood Pressure [Ri ght Upper Arm] Pulse Oximetry 95 Oxygen Delivery Me thod <Ravi Aguilar MD - Last Filed: 02/06/23 14:29> Course Course ED Course: Patient seen and examined, prior records reviewed. Patient presents today with wheezing and shortness of breath. No history of DVT, no pleuritic chest pain, concern for possible pulmonary embolism causing cardiogenic wheezing, could also be from heart failure or pulmonary edema with similar. Labs are ordered along with CT scan, DuoNeb will be ordered although patient has wheezing seems to be more upper airway. <Edmund Ty MD - Last Filed: 02/11/23 17:00> Vital Signs Vital signs: Initial Vital Signs Temperature 96.9 F L 02/06/23 05:50 Temperature Source Temporal Artery Scan 02/06/23 05:50 Pulse Rate 76 02/06/23 05:50 Pulse Rhythm Regular 02/06/23 05:50 Respiratory Rate 26 H 02/06/23 05:50 Blood Pressure 204/86 H 02/06/23 05:50 Blood Pressure Mean 125 H 02/06/23 05:50 Blood Pressure Position Sitting 02/06/23 05:50 Pulse Oximetry 97 02/06/23 05:50 Oxygen Delivery Method Room Air 02/06/23 05:50 Vital Signs Temperature 96.9 F L 02/06/23 05:50 Pulse Rate 76 02/06/23 05:50 Respiratory Rate 26 H 02/06/23 05:50 Blood Pressure 204/86 H 02/06/23 05:50 Pulse Oximetry 97 02/06/23 05:50 Oxygen Delivery Method Room Air 02/06/23 05:50 Temperature 96.9 F L 02/06/23 05:50 Pulse Rate 79 02/06/23 08:15 Respiratory Rate 26 H 02/06/23 05:50 Blood Pressure 204/86 H 02/06/23 05:50 Pulse Oximetry 95 02/06/23 08:15 Oxygen Delivery Method Room Air 02/06/23 05:50 <Edmund Ty MD - Last Filed: 02/11/23 17:00> Initial Vital Signs Temperature 96.9 F L 02/06/23 05:50 Temperature Source Temporal Artery Scan 02/06/23 05:50 Pulse Rate 76 02/06/23 05:50 Pulse Rhythm Regular 02/06/23 05:50 Respiratory Rate 26 H 02/06/23 05:50 Blood Pressure 204/86 H 02/06/23 05:50 Blood Pressure Mean 125 H 02/06/23 05:50 Blood Pressure Position Sitting 02/06/23 05:50 Pulse Oximetry 97 02/06/23 05:50 Oxygen Delivery Method Room Air 02/06/23 05:50 Vital Signs Temperature 96.9 F L 02/06/23 05:50 Pulse Rate 76 02/06/23 05:50 Respiratory Rate 26 H 02/06/23 05:50 Blood Pressure 204/86 H 02/06/23 05:50 Pulse Oximetry 97 02/06/23 05:50 Oxygen Delivery Method Room Air 02/06/23 05:50 Temperature 96.9 F L 02/06/23 05:50 Pulse Rate 79 02/06/23 08:15 Respiratory Rate 26 H 02/06/23 05:50 Blood Pressure 204/86 H 02/06/23 05:50 Pulse Oximetry 95 02/06/23 08:15 Oxygen Delivery Method Room Air 02/06/23 05:50 <Ravi Aguilar MD - Last Filed: 02/06/23 14:29> Medical Decision Making MDM Narrative Medical decision making narrative: Please see the note by Dr. Gibbons. The patient has blood work that shows a white count of 3980 hemoglobin 9.5 ER profile is largely unremarkable and glucose is 140, proBNP is elevated at 949. The patient's CT scan shows no evidence of pneumonia or pulmonary embolus, but the patient does have evidence of interstitial edema consistent with mild congestive heart failure. His BNP being elevated which can be consistent with that. He has not had any chest pain or cardiac symptoms, but I think running a troponin be interesting and will do that. Will give him IV Lasix 60 mg. If his troponins reasonable even if it is mildly elevated I think we can allow him to go home rest light activity his EKG looked to show no marked abnormality. I would increase his Lasix to 2 a day starting tomorrow for 3 days and given extra dose tonight he is on typically Lasix 40 mg daily. He should follow up with Dr. Ricci is plan for within the next 4-5 days he has a scheduled appointment. Return to ED sooner problems or concerns. Addendum: The patient's troponin is negative, his EKG is reassuring, I think he has not any chest pain. At this point and we can treat him with some additional diuretics and have him follow up with regular doctor as planned. Perhaps an outpatient echo would be appropriate as well. <Edmund Ty MD - Last Filed: 02/11/23 17:00> Please see the note by Dr. Gandhi. The patient has blood work that shows a white count of 3980 hemoglobin 9.5 ER profile is largely unremarkable and glucose is 140, proBNP is elevated at 949. The patient's CT scan shows no evidence of pneumonia or pulmonary embolus, but the patient does have evidence of interstitial edema consistent with mild congestive heart failure. His BNP being elevated which can be consistent with that. He has not had any chest pain or cardiac symptoms, but I think running a troponin be interesting and will do that. Will give him IV Lasix 60 mg. If his troponins reasonable even if it is mildly elevated I think we can allow him to go home rest light activity his EKG looked to show no marked abnormality. I would increase his Lasix to 2 a day starting tomorrow for 3 days and given extra dose tonight he is on typically Lasix 40 mg daily. He should follow up with Dr. Ricci is plan for within the next 4-5 days he has a scheduled appointment. Return to ED sooner problems or concerns. Addendum: The patient's troponin is negative, his EKG is reassuring, I think he has not any chest pain. At this point and we can treat him with some additional diuretics and have him follow up with regular doctor as planned. Perhaps an outpatient echo would be appropriate as well. <Ravi Aguilar MD - Last Filed: 02/06/23 14:29> Lab Data Labs: Lab Results 02/06/23 02/06/23 Range/Units 06:21 08:41 WBC 3.98 L (4.50-11.00) K/uL RBC 3.39 L (4.30-5.90) m/uL Hgb 9.5 L (13.5-17.5) gm/dL Hct 30.9 L (37.0-53.0) % MCV 91 (80-100) fL MCH 28 (26-34) pg MCHC 31 L (32-36) gm/dL RDW Coeff of Kevyn 13.2 (11.5-15.5) % Plt Count 227 (140-440) K/uL Neut % (Auto) 62.4 (42.0-72.0) % Lymph % (Auto) 21.9 (20-44) % [place] % (Auto) 12.1 H (0.0-11.0) % Eos % (Auto) 3.3 (0.0-7.0) % Baso % (Auto) 0.0 (0.0-3.0) % Neut # (Auto) 2.50 (1.7-7.0) K/uL Lymph # (Auto) 0.90 (0.90-2.90) K/uL [place] # (Auto) 0.50 (0.00-0.90) K/UL Eos # (Auto) 0.10 (0.00-0.50) K/uL Baso # (Auto) 0.00 (0.00-0.30) K/uL Abs Immat Gran (auto) 0.00 (0.00-0.30) K/uL Imm/Tot Granulo (auto) 0.3 % Sodium 141 (135-149) mmol/L Potassium 3.7 (3.6-5.1) mmol/L Chloride 107 (96-114) mmol/L Carbon Dioxide 24 (20-32) mmol/L Anion Gap 10 (7-15) mEq/L BUN 21 (7-30) mg/dL Creatinine 1.4 (0.5-1.5) mg/dL Estimated GFR 50 ml/min Glucose 140 H (60-115) mg/dL Calcium 8.5 (8.4-10.6) mg/dL Magnesium 2.3 (1.5-2.6) mg/dL Troponin I < 0.01 L (0.01-0.04) ng/mL NT-Pro-B Natriuret Pep 949 pg/mL Lab Acknowledgement Test Added <Edmund Ty MD - Last Filed: 02/11/23 17:00> Lab Results 02/06/23 02/06/23 Range/Units 06:21 08:41 WBC 3.98 L (4.50-11.00) K/uL RBC 3.39 L (4.30-5.90) m/uL Hgb 9.5 L (13.5-17.5) gm/dL Hct 30.9 L (37.0-53.0) % MCV 91 (80-100) fL MCH 28 (26-34) pg MCHC 31 L (32-36) gm/dL RDW Coeff of Kevyn 13.2 (11.5-15.5) % Plt Count 227 (140-440) K/uL Neut % (Auto) 62.4 (42.0-72.0) % Lymph % (Auto) 21.9 (20-44) % [place] % (Auto) 12.1 H (0.0-11.0) % Eos % (Auto) 3.3 (0.0-7.0) % Baso % (Auto) 0.0 (0.0-3.0) % Neut # (Auto) 2.50 (1.7-7.0) K/uL Lymph # (Auto) 0.90 (0.90-2.90) K/uL [place] # (Auto) 0.50 (0.00-0.90) K/UL Eos # (Auto) 0.10 (0.00-0.50) K/uL Baso # (Auto) 0.00 (0.00-0.30) K/uL Abs Immat Gran (auto) 0.00 (0.00-0.30) K/uL Imm/Tot Granulo (auto) 0.3 % Sodium 141 (135-149) mmol/L Potassium 3.7 (3.6-5.1) mmol/L Chloride 107 (96-114) mmol/L Carbon Dioxide 24 (20-32) mmol/L Anion Gap 10 (7-15) mEq/L BUN 21 (7-30) mg/dL Creatinine 1.4 (0.5-1.5) mg/dL Estimated GFR 50 ml/min Glucose 140 H (60-115) mg/dL Calcium 8.5 (8.4-10.6) mg/dL Magnesium 2.3 (1.5-2.6) mg/dL Troponin I < 0.01 L (0.01-0.04) ng/mL NT-Pro-B Natriuret Pep 949 pg/mL Lab Acknowledgement Test Added <Ravi Aguilar MD - Last Filed: 02/06/23 14:29> Discharge Plan Discharge Clinical Impression: Prostate cancer metastatic to multiple sites, Congestive heart failure <Edmund Ty MD - Last Filed: 02/11/23 17:00> Patient Disposition: Home w/ Parent or Adult <Edmund Ty MD - Last Filed: 02/11/23 17:00> Condition: Improved <Edmund Ty MD - Last Filed: 02/11/23 17:00> Additional Instructions: Recheck with Dr. Ricci history of planned. Would recommend you take an extra dose of Lasix today at about 5:00 p.m., and also increase her Lasix to 2 times a day 1 in the morning and 1 in the afternoon for 3 days, and then feed see Dr. Ricci. Recommend you check your weight every day. Avoid salt. Return to the emergency department problems or concerns. Continue same medications other than the adjustment in the Lasix. <Edmund Ty MD - Last Filed: 02/11/23 17:00> Prescriptions: No Action atorvastatin 20 mg tablet 20 mg PO HS potassium chloride 10 mEq tablet,ER particles/crystals 10 meq PO DAILY metformin 500 mg tablet extended release 24 hr 500 mg PO BID (DME) blood-glucose meter [Accu-Chek Guide Me Glucose Mtr] Misc See Rx Instructions .ROUTE .MEDSUPPLY Qty: 1 Patient Comments: [NO ORIGINAL SIG] Rx Instructions: As directed (DME) Accu-Chek Guide test strips Strip See Rx Instructions .ROUTE .MEDSUPPLY Qty: 10 Rx Instructions: As directed (DME) lancets [Accu-Chek Softclix Lancets] Misc See Rx Instructions .ROUTE .MEDSUPPLY Qty: 100 Patient Comments: [NO ORIGINAL SIG] Rx Instructions: As directed Xtandi 40 mg capsule 120 mg PO QDAY Qty: 90 1RF doxazosin 2 mg tablet 2 mg PO DAILY furosemide 20 mg tablet 20 mg PO DAILY levothyroxine 100 mcg tablet 100 mcg PO DAILY lisinopril 40 mg tablet 40 mg PO DAILY Eliquis 5 mg tablet 5 mg PO Q12H labetalol 100 mg tablet 100 mg PO BID abiraterone 250 mg tablet 500 mg PO DAILY Qty: 60 2RF prednisone 5 mg tablet 5 mg PO BID Qty: 60 2RF <Edmund Ty MD - Last Filed: 02/11/23 17:00> Follow Up/Referrals: Luke Ricci MD [Primary Care Provider] - <Edmund Ty MD - Last Filed: 02/11/23 17:00> Stand Alone Forms: [facility] Info Instructions <Edmund Ty MD - Last Filed: 02/11/23 17:00>
--- NOTE | 2023-02-06 06:11 | CRLHL7_ITS ---
For Patients: As a result of the Century Cures Act, medical imaging exams and procedure reports are released immediately into your electronic medical record. You may view this report before your referring provider. If you have questions, please contact your health care provider. Indication: Dyspnea, history of DVT and PE Technique: Volumetric multidetector CT images of the chest were obtained after the administration of IV contrast. 95 cc Isovue 370 low osmolar intravenous contrast Comparison: None available. Findings: The thoracic inlet and thyroid gland are unremarkable. The thoracic aorta is nonaneurysmal. There is no central filling defect to suggest pulmonary embolism. There are moderate scattered mediastinal and hilar lymph nodes. There is marked central bronchial thickening with mucoid impaction of the lower lobe bronchi. There are small basilar pleural effusions with extensive interlobular septal thickening consistent with pulmonary edema. There is no evidence of pulmonary mass or suspicious pulmonary nodule. The partially visualized upper abdominal viscera are within normal limits. The thoracic vertebral body heights are grossly maintained with diffuse flowing anterior osteophytosis. There is no significant spondylolisthesis or displaced fracture. Impression: Marked central bronchial thickening and interlobular septal prominence consistent with pulmonary edema with small basilar pleural effusions. No evidence of pulmonary embolus. Please note that all CT scans at this facility use dose modulation, iterative reconstruction, and/or weight-based dosing when appropriate to reduce radiation dose to as low as reasonably achievable. Dictated by Lalo Bejarano MD @ 02/06/2023 8:16:45 AM (Electronically Signed)
[2023-02-06] MEDS: IPRAT-ALBUT 0.5-2.5 MG/3 ML NEB 1 NEB IH (06:35)
[2023-02-06 06:40] LABS: Eosinophils Percent Auto 3.3 % (0.0-7.0); Hematocrit 30.9 % (37.0-53.0); Hemoglobin* 9.5 gm/dL (13.5-17.5); Immature Granulocytes Pct Auto 0.3 %; Lymphocytes Percent Auto 21.9 % (20-44); Mean Corpuscular HGB Conc 31 gm/dL (32-36); Mean Corpuscular Hemoglobin 28 pg (26-34); Mean Corpuscular Volume 91 fL (80-100); Monocytes Percent Auto 12.1 % (0.0-11.0); Neutrophils Percent Auto 62.4 % (42.0-72.0); Platelet Count* 227 K/uL (140-440); RDW Coefficient of Variation % 13.2 % (11.5-15.5); Red Blood Count 3.39 m/uL (4.30-5.90); White Blood Count* 3.98 K/uL (4.50-11.00)
[2023-02-06 06:47] LABS: Magnesium* 2.3 mg/dL (1.5-2.6)
[2023-02-06 06:57] LABS: Slide Review Reflex No
[2023-02-06 06:58] LABS: NT Pro B Type NatriureticPept* 949 pg/mL
[2023-02-06 07:32] LABS: Chloride* 107 mmol/L (96-114); Potassium* 3.7 mmol/L (3.6-5.1); Sodium* 141 mmol/L (135-149)
[2023-02-06 07:35] LABS: Anion Gap 10 mEq/L (7-15); Blood Urea Nitrogen* 21 mg/dL (7-30); Carbon Dioxide* 24 mmol/L (20-32); Creatinine* 1.4 mg/dL (0.5-1.5); Estimated Glomerular Filt Rate 50 ml/min; Glucose* 140 mg/dL (60-115)
[2023-02-06 07:36] LABS: Calcium* 8.5 mg/dL (8.4-10.6)
[2023-02-06] MEDS: FUROSEMIDE 10 MG/ML inj 60 MG IVP (09:02)
[2023-02-06 09:06] LABS: Troponin I* < 0.01 ng/mL (0.01-0.04)
== END 2023-02-06 09:05 | disposition home or self-care (01) ==
PROVIDERS: Family Medicine; Emergency Provider Family Medicine; PCP Family Medicine
DX: C61 Malignant neoplasm of prostate (principal); C79.9 Secondary malignant neoplasm of unspecified site; I50.9 Heart failure, unspecified
CPT/HCPCS: 36415; 71275; 80048; 83735; 83880; 84484; 85025; 94640; 96374; 99284; 99285; J1940; Q9967

== ENCOUNTER 2023-06-05 11:00 | Outpatient (RCR) | payer MEDICARE, SELFPAY ==
--- NOTE | 2022-12-27 13:58 | ONC.NURNOTE ---
Addendum entered by Zoey Medley RN 12/31/22 14:20: $0 Copay per [facility] Addendum entered by Zoey Medley RN 12/31/22 14:02: PA completed via [employer] [facility]# [id number] thru 04/21/23 Original Note: Information given on Xtandi yesterday-discussed administration, prednisone taper when he stops abiraterone take prednisone once daily X 4 days then QOD for 4 doses he may start Xtandi the day after stopping his abiraterone New RX sent to [facility] with insurance cards and med list
[2023-01-03 11:11] VITALS: BP 168/71; PULSE 63; RESP 18; TEMP 36.8; O2SAT 96
--- NOTE | 2023-01-03 11:21 | ONC.NURNOTE ---
Drug interaction between amlodipine and Xtandi- moderate- monitor BP and P- patient informed he does intermittently take his BP at home and was informed to do after starting his Xtandi
[2023-01-03 11:47] LABS: Basophils Absolute Auto 0.02 K/uL (0.00-0.30); Basophils Percent Auto 0.3 % (0.0-3.0); Eosinophils Absolute Auto 0.04 K/uL (0.00-0.50); Eosinophils Percent Auto 0.6 % (0.0-7.0); Hematocrit 32.8 % (37.0-53.0); Hemoglobin* 10.4 gm/dL (13.5-17.5); Immature Granulocytes Abs Auto 0.01 K/uL (0.00-0.30); Immature Granulocytes Pct Auto 0.1 %; Lymphocytes Percent Auto 12.3 % (20-44); Mean Corpuscular HGB Conc 32 gm/dL (32-36); Mean Corpuscular Hemoglobin 30 pg (26-34); Mean Corpuscular Volume 93 fL (80-100); Monocytes Percent Auto 5.7 % (0.0-11.0); Platelet Count* 199 K/uL (140-440); RDW Coefficient of Variation % 14.3 % (11.5-15.5); Red Blood Count 3.51 m/uL (4.30-5.90); White Blood Count* 6.89 K/uL (4.50-11.00)
[2023-01-03 11:55] LABS: Slide Review Reflex No
[2023-01-03 11:56] LABS: Albumin* 3.7 g/dL (3.3-5.0); Chloride* 109 mmol/L (96-114)
[2023-01-03 11:57] LABS: Potassium* 4.3 mmol/L (3.6-5.1); Sodium* 140 mmol/L (135-149)
[2023-01-03 11:59] LABS: Alkaline Phosphatase* 59 U/L (40-150); Anion Gap 6 mEq/L (7-15); Aspartate Amino Transferase* 27 U/L (12-35); Bilirubin Total* 0.4 mg/dL (0.1-1.5); Blood Urea Nitrogen* 33 mg/dL (7-30); Carbon Dioxide* 25 mmol/L (20-32); Creatinine* 1.5 mg/dL (0.5-1.5); Estimated Glomerular Filt Rate 46 ml/min; Total Protein* 6.2 g/dL (6.0-8.3)
[2023-01-03 12:00] LABS: Alanine Aminotransferase* 24 U/L (4-50); Calcium* 8.9 mg/dL (8.4-10.6); Glucose* 105 mg/dL (60-115)
[2023-01-03 12:29] LABS: PSA Diagnostic* < 0.06 ng/mL (0.10-4.00)
--- NOTE | 2023-01-08 12:26 | ONC.NURNOTE ---
Lucy called and stated they would run out of his old med a week sooner so reviewed prednisone plan and also told them that blood draws should be moved up a week sooner as well. Lucy seems to be able to repeat plan and will call back with change of appointments as soon as she puts it all down
--- NOTE | 2023-01-15 10:33 | ONC.NURNOTE ---
Abiraterone last dose taken on 01/13/23 Xtandi started on 01/14/23 with dose 3 X 40 mg tabs once daily patient started prednisone taper early and took last day of prednisone on 01/13/23 tapered from 5 mg BID as dose to 5 mg daily X 3 days then 5 mg QOD X 4 days total then he stopped
[2023-02-18 14:21] LABS: Eosinophils Absolute Auto 0.14 K/uL (0.00-0.50); Eosinophils Percent Auto 2.9 % (0.0-7.0); Hematocrit 31.1 % (37.0-53.0); Hemoglobin* 9.7 gm/dL (13.5-17.5); Immature Granulocytes Abs Auto 0.01 K/uL (0.00-0.30); Immature Granulocytes Pct Auto 0.2 %; Lymphocytes Absolute Auto 1.23 K/uL (0.90-2.90); Lymphocytes Percent Auto 25.3 % (20-44); Mean Corpuscular HGB Conc 31 gm/dL (32-36); Mean Corpuscular Hemoglobin 28 pg (26-34); Mean Corpuscular Volume 90 fL (80-100); Monocytes Percent Auto 7.4 % (0.0-11.0); Neutrophils Absolute Auto 3.12 K/uL (1.7-7.0); Neutrophils Percent Auto 64.2 % (42.0-72.0); Platelet Count* 254 K/uL (140-440); RDW Coefficient of Variation % 13.1 % (11.5-15.5); Red Blood Count 3.47 m/uL (4.30-5.90); White Blood Count* 4.86 K/uL (4.50-11.00)
[2023-02-18 14:25] LABS: Slide Review Reflex No
[2023-02-18 14:34] LABS: Albumin* 3.8 g/dL (3.3-5.0); Chloride* 100 mmol/L (96-114)
[2023-02-18 14:35] LABS: Potassium* 3.5 mmol/L (3.6-5.1); Sodium* 140 mmol/L (135-149)
[2023-02-18 14:37] LABS: Alkaline Phosphatase* 68 U/L (40-150); Anion Gap 15 mEq/L (7-15); Aspartate Amino Transferase* 50 U/L (12-35); Bilirubin Total* 0.3 mg/dL (0.1-1.5); Blood Urea Nitrogen* 33 mg/dL (7-30); Carbon Dioxide* 25 mmol/L (20-32); Creatinine* 1.5 mg/dL (0.5-1.5); Estimated Glomerular Filt Rate 46 ml/min; Total Protein* 6.3 g/dL (6.0-8.3)
[2023-02-18 14:38] LABS: Alanine Aminotransferase* 15 U/L (4-50); Calcium* 8.7 mg/dL (8.4-10.6); Glucose* 148 mg/dL (60-115)
[2023-04-09 14:38] LABS: Basophils Percent Auto 0.3 % (0.0-3.0); Eosinophils Percent Auto 2.6 % (0.0-7.0); Hematocrit 31.3 % (37.0-53.0); Hemoglobin* 9.7 gm/dL (13.5-17.5); Lymphocytes Percent Auto 23.5 % (20-44); Mean Corpuscular HGB Conc 31 gm/dL (32-36); Mean Corpuscular Hemoglobin 25 pg (26-34); Mean Corpuscular Volume 82 fL (80-100); Monocytes Percent Auto 10.1 % (0.0-11.0); Neutrophils Percent Auto 63.5 % (42.0-72.0); Platelet Count* 222 K/uL (140-440); RDW Coefficient of Variation % 14.2 % (11.5-15.5); Red Blood Count 3.82 m/uL (4.30-5.90); White Blood Count* 3.87 K/uL (4.50-11.00)
[2023-04-09 14:50] LABS: Slide Review Reflex No
[2023-04-09 15:00] LABS: Chloride* 103 mmol/L (96-114)
[2023-04-09 15:01] LABS: Potassium* 3.7 mmol/L (3.6-5.1); Sodium* 139 mmol/L (135-149)
[2023-04-09 15:03] LABS: Alanine Aminotransferase* 13 U/L (4-50); Alkaline Phosphatase* 67 U/L (40-150); Aspartate Amino Transferase* 23 U/L (12-35); Bilirubin Total* 0.2 mg/dL (0.1-1.5); Blood Urea Nitrogen* 33 mg/dL (7-30); Carbon Dioxide* 25 mmol/L (20-32); Creatinine* 1.6 mg/dL (0.5-1.5); Estimated Glomerular Filt Rate 42 ml/min; Glucose* 116 mg/dL (60-115); Total Protein* 6.6 g/dL (6.0-8.3)
[2023-04-09 15:04] LABS: Anion Gap 11 mEq/L (7-15); Calcium* 8.9 mg/dL (8.4-10.6)
[2023-04-18 14:17] LABS: PSA Diagnostic* < 0.06 ng/mL (0.10-4.00)
[2023-05-10 11:00] VITALS: BP 147/74; PULSE 100; RESP 16; TEMP 36.1; O2SAT 95
[2023-05-10 11:20] LABS: Basophils Absolute Auto 0.01 K/uL (0.00-0.30); Basophils Percent Auto 0.2 % (0.0-3.0); Eosinophils Absolute Auto 0.09 K/uL (0.00-0.50); Eosinophils Percent Auto 1.9 % (0.0-7.0); Hematocrit 33.8 % (37.0-53.0); Hemoglobin* 10.4 gm/dL (13.5-17.5); Lymphocytes Absolute Auto 1.06 K/uL (0.90-2.90); Lymphocytes Percent Auto 22.9 % (20-44); Mean Corpuscular HGB Conc 31 gm/dL (32-36); Mean Corpuscular Hemoglobin 25 pg (26-34); Mean Corpuscular Volume 81 fL (80-100); Monocytes Percent Auto 8.2 % (0.0-11.0); Neutrophils Absolute Auto 3.08 K/uL (1.7-7.0); Neutrophils Percent Auto 66.8 % (42.0-72.0); Platelet Count* 248 K/uL (140-440); RDW Coefficient of Variation % 16.2 % (11.5-15.5); Red Blood Count 4.18 m/uL (4.30-5.90); White Blood Count* 4.62 K/uL (4.50-11.00)
[2023-05-10 11:33] LABS: Chloride* 104 mmol/L (96-114); Potassium* 4.4 mmol/L (3.6-5.1); Sodium* 138 mmol/L (135-149)
[2023-05-10 11:35] LABS: Creatinine* 1.4 mg/dL (0.5-1.5); Estimated Glomerular Filt Rate 50 ml/min
[2023-05-10 11:36] LABS: Alanine Aminotransferase* 13 U/L (4-50); Alkaline Phosphatase* 62 U/L (40-150); Anion Gap 8 mEq/L (7-15); Aspartate Amino Transferase* 23 U/L (12-35); Bilirubin Total* 0.2 mg/dL (0.1-1.5); Blood Urea Nitrogen* 40 mg/dL (7-30); Carbon Dioxide* 26 mmol/L (20-32); Glucose* 95 mg/dL (60-115); Total Protein* 6.7 g/dL (6.0-8.3)
[2023-05-10 11:37] LABS: Calcium* 9.1 mg/dL (8.4-10.6)
[2023-05-10 23:47] LABS: Slide Review Reflex No
[2023-06-05 11:21] LABS: Basophils Percent Auto 0.3 % (0.0-3.0); Eosinophils Percent Auto 2.8 % (0.0-7.0); Hematocrit 34.1 % (37.0-53.0); Hemoglobin* 10.5 gm/dL (13.5-17.5); Lymphocytes Percent Auto 22.8 % (20-44); Mean Corpuscular HGB Conc 31 gm/dL (32-36); Mean Corpuscular Hemoglobin 25 pg (26-34); Mean Corpuscular Volume 81 fL (80-100); Monocytes Percent Auto 8.5 % (0.0-11.0); Neutrophils Percent Auto 65.6 % (42.0-72.0); Platelet Count* 222 K/uL (140-440); RDW Coefficient of Variation % 16.7 % (11.5-15.5); White Blood Count* 3.86 K/uL (4.50-11.00)
[2023-06-05 11:23] LABS: Slide Review Reflex No
[2023-06-05 11:57] LABS: Albumin* 3.9 g/dL (3.3-5.0); Chloride* 106 mmol/L (96-114); Sodium* 137 mmol/L (135-149)
[2023-06-05 11:59] LABS: Creatinine* 1.4 mg/dL (0.5-1.5); Estimated Glomerular Filt Rate 50 ml/min
[2023-06-05 12:00] LABS: Alanine Aminotransferase* 12 U/L (4-50); Alkaline Phosphatase* 73 U/L (40-150); Anion Gap 8 mEq/L (7-15); Aspartate Amino Transferase* 23 U/L (12-35); Bilirubin Total* 0.3 mg/dL (0.1-1.5); Blood Urea Nitrogen* 27 mg/dL (7-30); Calcium* 8.9 mg/dL (8.4-10.6); Carbon Dioxide* 23 mmol/L (20-32); Glucose* 99 mg/dL (60-115); Total Protein* 6.7 g/dL (6.0-8.3)
--- NOTE | 2023-06-05 14:20 | ONC.NURNOTE ---
lab results noted and called to as stable no changes patient reports fatigue since starting Xtandi states they had to pay $900 with first fill of the year and she is not sure what will be the copay with next fill- they have not needed copay assist as had $0 copay previously discussed option of [facility] drug program if income with in the qualication limits
== END 2023-06-24 23:59 | disposition home or self-care (01) ==
LOC: CCIC 11:00
PROVIDERS: Clinical Nurse Specialist; Internal Medicine Hematology & Oncology; PCP Family Medicine; Referring Provider Family Medicine; Visit Provider Physician Assistant
DX: C61 Malignant neoplasm of prostate (principal)
CPT/HCPCS: 36415; 80053; 84153; 85025; 96401; 99212; 99213; 99214; 99215; J9217

== ENCOUNTER 2023-11-05 13:30 | Outpatient (RCR) | payer MEDICARE, SELFPAY ==
[2023-07-03 11:24] LABS: Eosinophils Percent Auto 2.7 % (0.0-7.0); Hematocrit 34.4 % (37.0-53.0); Hemoglobin* 10.9 gm/dL (13.5-17.5); Lymphocytes Percent Auto 22.8 % (20-44); Mean Corpuscular HGB Conc 32 gm/dL (32-36); Mean Corpuscular Hemoglobin 26 pg (26-34); Mean Corpuscular Volume 82 fL (80-100); Monocytes Percent Auto 7.8 % (0.0-11.0); Neutrophils Percent Auto 66.7 % (42.0-72.0); Platelet Count* 228 K/uL (140-440); RDW Coefficient of Variation % 16.9 % (11.5-15.5); Red Blood Count 4.18 m/uL (4.30-5.90); White Blood Count* 4.38 K/uL (4.50-11.00)
[2023-07-03 11:28] LABS: Chloride* 106 mmol/L (96-114); Sodium* 141 mmol/L (135-149)
[2023-07-03 11:29] LABS: Potassium* 4.2 mmol/L (3.6-5.1)
[2023-07-03 11:30] LABS: Slide Review Reflex No
[2023-07-03 11:31] LABS: Alkaline Phosphatase* 73 U/L (40-150); Anion Gap 11 mEq/L (7-15); Aspartate Amino Transferase* 21 U/L (12-35); Bilirubin Total* 0.3 mg/dL (0.1-1.5); Blood Urea Nitrogen* 33 mg/dL (7-30); Carbon Dioxide* 24 mmol/L (20-32); Creatinine* 1.4 mg/dL (0.5-1.5); Estimated Glomerular Filt Rate 50 ml/min; Total Protein* 6.8 g/dL (6.0-8.3)
[2023-07-03 11:32] LABS: Alanine Aminotransferase* 13 U/L (4-50); Calcium* 9.2 mg/dL (8.4-10.6); Glucose* 109 mg/dL (60-115)
[2023-07-03 12:07] LABS: PSA Diagnostic* < 0.06 ng/mL (0.10-4.00)
--- NOTE | 2023-07-03 13:57 | ONC.NURNOTE ---
Labs reviewed by nurse- with in normal limits for patient called to next appts reviewed reports no concerns with xtandi
[2023-07-31 10:40] LABS: Basophils Absolute Auto 0.01 K/uL (0.00-0.30); Basophils Percent Auto 0.2 % (0.0-3.0); Eosinophils Absolute Auto 0.09 K/uL (0.00-0.50); Eosinophils Percent Auto 1.7 % (0.0-7.0); Hematocrit 35.7 % (37.0-53.0); Hemoglobin* 11.1 gm/dL (13.5-17.5); Immature Granulocytes Abs Auto 0.01 K/uL (0.00-0.30); Immature Granulocytes Pct Auto 0.2 %; Lymphocytes Absolute Auto 1.08 K/uL (0.90-2.90); Lymphocytes Percent Auto 20.3 % (20-44); Mean Corpuscular HGB Conc 31 gm/dL (32-36); Mean Corpuscular Hemoglobin 26 pg (26-34); Mean Corpuscular Volume 84 fL (80-100); Monocytes Percent Auto 7.2 % (0.0-11.0); Neutrophils Absolute Auto 3.74 K/uL (1.7-7.0); Neutrophils Percent Auto 70.4 % (42.0-72.0); Platelet Count* 214 K/uL (140-440); RDW Coefficient of Variation % 15.5 % (11.5-15.5); Red Blood Count 4.24 m/uL (4.30-5.90); White Blood Count* 5.31 K/uL (4.50-11.00)
[2023-07-31 10:42] LABS: Slide Review Reflex No
[2023-07-31 10:53] LABS: Chloride* 103 mmol/L (96-114)
[2023-07-31 10:54] LABS: Albumin* 4.1 g/dL (3.3-5.0); Potassium* 3.8 mmol/L (3.6-5.1); Sodium* 137 mmol/L (135-149)
[2023-07-31 10:56] LABS: Anion Gap 8 mEq/L (7-15); Carbon Dioxide* 26 mmol/L (20-32); Creatinine* 1.3 mg/dL (0.5-1.5); Estimated Glomerular Filt Rate 54 ml/min
[2023-07-31 10:57] LABS: Alanine Aminotransferase* 15 U/L (4-50); Alkaline Phosphatase* 81 U/L (40-150); Aspartate Amino Transferase* 25 U/L (12-35); Bilirubin Total* 0.4 mg/dL (0.1-1.5); Blood Urea Nitrogen* 20 mg/dL (7-30); Calcium* 9.3 mg/dL (8.4-10.6); Glucose* 97 mg/dL (60-115); Total Protein* 6.8 g/dL (6.0-8.3)
--- NOTE | 2023-08-01 12:28 | ONC.NURNOTE ---
Addendum entered by Nicole Magaña RN 08/05/23 16:23: Patient called for clarification of not wanting the shots. He does not like getting these and would like to see how his PSA responds to omitting these. Discussed with Dr. merida, this is a main part of patient treatment. He was given the option of every 6 month shots. He is open to this, but will not come in until 08/19/2023 per his availability. He also notes that he does NOT want the eligard injections, he will leave if nursing comes at his stomach. Oncologist is okay with patient getting every 6 month lupron injections IM. Patient scheduled for 08/18 at 1000. Original Note: Booster Pump Operator took call from Erin stating that he does not want his Eligard injection on 08/02/23, he is going to watch his PSA before he has another injection.
--- NOTE | 2023-08-09 13:26 | URNOTE ---
Received request for prior auth. Leuprolide ([id number]) has been approved 08-19-2023 to 08-18-2024. Auth #[id number].
[2023-08-19 10:06] VITALS: BP 140/67; PULSE 54; RESP 16; TEMP 36; O2SAT 98
[2023-11-04 09:12] LABS: Basophils Percent Auto 0.3 % (0.0-3.0); Eosinophils Percent Auto 2.7 % (0.0-7.0); Hematocrit 39.2 % (37.0-53.0); Hemoglobin* 11.9 gm/dL (13.5-17.5); Immature Granulocytes Pct Auto 0.3 %; Lymphocytes Percent Auto 26.8 % (20-44); Mean Corpuscular HGB Conc 30 gm/dL (32-36); Mean Corpuscular Hemoglobin 27 pg (26-34); Mean Corpuscular Volume 90 fL (80-100); Neutrophils Percent Auto 60.9 % (42.0-72.0); Platelet Count* 198 K/uL (140-440); RDW Coefficient of Variation % 15.6 % (11.5-15.5); Red Blood Count 4.36 m/uL (4.30-5.90); White Blood Count* 3.77 K/uL (4.50-11.00)
[2023-11-04 09:13] LABS: Slide Review Reflex No
[2023-11-04 09:29] LABS: Albumin* 4.3 g/dL (3.3-5.0); Chloride* 103 mmol/L (96-114); Sodium* 138 mmol/L (135-149)
[2023-11-04 09:30] LABS: Potassium* 4.3 mmol/L (3.6-5.1)
[2023-11-04 09:32] LABS: Alanine Aminotransferase* 13 U/L (4-50); Alkaline Phosphatase* 70 U/L (40-150); Anion Gap 11 mEq/L (7-15); Aspartate Amino Transferase* 25 U/L (12-35); Bilirubin Total* 0.4 mg/dL (0.1-1.5); Blood Urea Nitrogen* 29 mg/dL (7-30); Carbon Dioxide* 24 mmol/L (20-32); Creatinine* 1.3 mg/dL (0.5-1.5); Estimated Glomerular Filt Rate 54 ml/min; Glucose* 118 mg/dL (60-115); Total Protein* 6.8 g/dL (6.0-8.3)
[2023-11-04 09:33] LABS: Calcium* 9.3 mg/dL (8.4-10.6)
[2023-11-04 10:02] LABS: PSA Diagnostic* < 0.06 ng/mL (0.10-4.00)
== END 2023-12-30 23:59 | disposition home or self-care (01) ==
LOC: CCIC 13:30
PROVIDERS: Physician Assistant; PCP Family Medicine; Referring Provider Family Medicine; Visit Provider Internal Medicine Hematology & Oncology
DX: C61 Malignant neoplasm of prostate (principal); Z86.711 Personal history of pulmonary embolism; Z86.718 Personal history of other venous thrombosis and embolism
CPT/HCPCS: 36415; 80053; 84153; 85025; 96401; 99214; G0463

== ENCOUNTER 2024-08-07 10:00 | Outpatient (RCR) | payer MEDICARE, BC, SELFPAY ==
[2024-02-18 10:28] LABS: Albumin* 4.3 g/dL (3.3-5.0)
[2024-02-18 10:29] LABS: Chloride* 102 mmol/L (96-114); Sodium* 136 mmol/L (135-149)
[2024-02-18 10:31] LABS: Bilirubin Total* 0.4 mg/dL (0.1-1.5); Creatinine* 1.3 mg/dL (0.5-1.5); Estimated Glomerular Filt Rate 54 ml/min
[2024-02-18 10:32] LABS: Alanine Aminotransferase* 18 U/L (4-50); Alkaline Phosphatase* 75 U/L (40-150); Anion Gap 10 mEq/L (7-15); Aspartate Amino Transferase* 31 U/L (12-35); Blood Urea Nitrogen* 29 mg/dL (7-30); Calcium* 9.3 mg/dL (8.4-10.6); Carbon Dioxide* 24 mmol/L (20-32); Glucose* 151 mg/dL (60-115)
[2024-02-18 11:09] LABS: PSA Diagnostic* < 0.06 ng/mL (0.10-4.00)
[2024-02-18 16:24] LABS: Basophils Percent Auto 0.2 % (0.0-3.0); Eosinophils Percent Auto 1.6 % (0.0-7.0); Hematocrit 39.5 % (37.0-53.0); Hemoglobin* 12.7 gm/dL (13.5-17.5); Immature Granulocytes Pct Auto 0.2 %; Lymphocytes Percent Auto 21.3 % (20-44); Mean Corpuscular HGB Conc 32 gm/dL (32-36); Mean Corpuscular Hemoglobin 29 pg (26-34); Mean Corpuscular Volume 91 fL (80-100); Monocytes Percent Auto 8.6 % (0.0-11.0); Neutrophils Percent Auto 68.1 % (42.0-72.0); Platelet Count* 203 K/uL (140-440); Red Blood Count 4.35 m/uL (4.30-5.90); White Blood Count* 4.42 K/uL (4.50-11.00)
[2024-02-18 16:27] LABS: Slide Review Reflex No
--- NOTE | 2024-05-14 10:25 | ONC.NURNOTE ---
Addendum entered by Zoey Medley RN 05/14/24 10:44: aware of initial $2000 out of pocket for first RX fill of the year- they can ask about an available miya for prostate cancer, but funded grants have rare availability Original Note: dropped off information regarding New insurance that requires [facility] for Xtandi RX and supporting documentation faxed to [facility] on 05/13/24- at [phone] Envelope Folder called to expedite intake process- patient with 4 days of xtandi left [facility] states they will reach out to patient tomorrow patient notified
[2024-05-14 11:47] LABS: Basophils Absolute Auto 0.01 K/uL (0.00-0.30); Basophils Percent Auto 0.2 % (0.0-3.0); Eosinophils Absolute Auto 0.13 K/uL (0.00-0.50); Eosinophils Percent Auto 2.9 % (0.0-7.0); Hematocrit 40.3 % (37.0-53.0); Hemoglobin* 13.1 gm/dL (13.5-17.5); Immature Granulocytes Abs Auto 0.01 K/uL (0.00-0.30); Immature Granulocytes Pct Auto 0.2 %; Lymphocytes Absolute Auto 1.16 K/uL (0.90-2.90); Lymphocytes Percent Auto 25.7 % (20-44); Mean Corpuscular HGB Conc 33 gm/dL (32-36); Mean Corpuscular Hemoglobin 29 pg (26-34); Mean Corpuscular Volume 90 fL (80-100); Monocytes Percent Auto 8.9 % (0.0-11.0); Neutrophils Percent Auto 62.1 % (42.0-72.0); Platelet Count* 189 K/uL (140-440); RDW Coefficient of Variation % 13.3 % (11.5-15.5); Red Blood Count 4.47 m/uL (4.30-5.90); White Blood Count* 4.51 K/uL (4.50-11.00)
[2024-05-14 11:53] LABS: Slide Review Reflex No
[2024-05-14 12:00] LABS: Chloride* 102 mmol/L (96-114); Sodium* 136 mmol/L (135-149)
[2024-05-14 12:02] LABS: Creatinine* 1.3 mg/dL (0.5-1.5); Est. Creatinine Clearance* 38.84; Estimated Glomerular Filt Rate 54 ml/min
[2024-05-14 12:03] LABS: Alanine Aminotransferase* 14 U/L (4-50); Alkaline Phosphatase* 76 U/L (40-150); Anion Gap 8 mEq/L (7-15); Aspartate Amino Transferase* 22 U/L (12-35); Bilirubin Total* 0.4 mg/dL (0.1-1.5); Blood Urea Nitrogen* 30 mg/dL (7-30); Calcium* 8.8 mg/dL (8.4-10.6); Carbon Dioxide* 26 mmol/L (20-32); Glucose* 109 mg/dL (60-115); Total Protein* 6.6 g/dL (6.0-8.3)
[2024-05-14 12:39] LABS: PSA Diagnostic* < 0.06 ng/mL (0.10-4.00)
--- NOTE | 2024-05-15 11:24 | ONC.NURNOTE ---
Addendum entered and electronically signed by Mary Lee, EPIC CADENCE ANALYST 05/22/24 13:45: Lucy Burch, pt's , called today to update us that she was having difficulty with pt's xtandi. Specialty pharmacy was not accepting their credit cards for payment, and order had been cancelled by [facility]. Ms. Burch called [facility]'s business office and believes the situation is corrected. Pharmacy has accepted their credit card payments and is overnighting the xtandi. Pt has 1 tabs left and has only been taking 1-40 mg tab for the past 3 days to make them last. Ms. Burch will call back on Saturday if there are any additional issues. Ms. Burch also reports that Mr. Burch's PCP started him on a blood pressure medication today and also took images of his back, related to fall with persistent low back pain x 2 weeks. Imaging results not yet available to them. Original Note: Xtandi with $0 copay and no PA required [facility] will call [facility] to ship the medication
--- NOTE | 2024-06-30 13:40 | URNOTE ---
Request received for authorization for Leuprolide ([id number]). Prior authorization is not required as services are based on medical necessity and follow Medicare guidelines.
[2024-08-07 09:57] LABS: Basophils Absolute Auto 0.01 K/uL (0.00-0.30); Basophils Percent Auto 0.2 % (0.0-3.0); Eosinophils Absolute Auto 0.17 K/uL (0.00-0.50); Hematocrit 41.7 % (37.0-53.0); Hemoglobin* 13.8 gm/dL (13.5-17.5); Immature Granulocytes Abs Auto 0.01 K/uL (0.00-0.30); Immature Granulocytes Pct Auto 0.2 %; Lymphocytes Absolute Auto 1.19 K/uL (0.90-2.90); Lymphocytes Percent Auto 20.8 % (20-44); Mean Corpuscular HGB Conc 33 gm/dL (32-36); Mean Corpuscular Hemoglobin 31 pg (26-34); Mean Corpuscular Volume 92 fL (80-100); Monocytes Percent Auto 7.5 % (0.0-11.0); Neutrophils Absolute Auto 3.92 K/uL (1.7-7.0); Neutrophils Percent Auto 68.3 % (42.0-72.0); Platelet Count* 220 K/uL (140-440); RDW Coefficient of Variation % 13.4 % (11.5-15.5); Red Blood Count 4.53 m/uL (4.30-5.90); White Blood Count* 5.73 K/uL (4.50-11.00)
[2024-08-07 10:05] LABS: Slide Review Reflex No
[2024-08-07 10:10] LABS: Albumin* 4.3 g/dL (3.3-5.0); Chloride* 104 mmol/L (96-114); Sodium* 138 mmol/L (135-149)
[2024-08-07 10:11] LABS: Potassium* 4.4 mmol/L (3.6-5.1)
[2024-08-07 10:13] LABS: Alanine Aminotransferase* 23 U/L (4-50); Anion Gap 9 mEq/L (7-15); Aspartate Amino Transferase* 34 U/L (12-35); Blood Urea Nitrogen* 30 mg/dL (7-30); Carbon Dioxide* 25 mmol/L (20-32); Creatinine* 1.4 mg/dL (0.5-1.5); Est. Creatinine Clearance* 36.07; Estimated Glomerular Filt Rate 49 ml/min
[2024-08-07 10:14] LABS: Alkaline Phosphatase* 74 U/L (40-150); Bilirubin Total* 0.4 mg/dL (0.1-1.5); Calcium* 9.1 mg/dL (8.4-10.6); Glucose* 109 mg/dL (60-115); Total Protein* 6.9 g/dL (6.0-8.3)
[2024-08-07 10:20] VITALS: BP 181/82; PULSE 59; RESP 18; TEMP 36; O2SAT 97
[2024-08-07] MEDS: LEUPROLIDE ACETATE (ELIGARD) 45 MG SYRINGE SUBCUT (10:23)
[2024-08-07 10:46] LABS: PSA Diagnostic* < 0.06 ng/mL (0.10-4.00)
== END 2024-08-16 23:59 | disposition home or self-care (01) ==
LOC: CCIC 10:00
PROVIDERS: Internal Medicine Hematology & Oncology; PCP Family Medicine; Referring Provider Family Medicine; Visit Provider Physician Assistant
DX: C61 Malignant neoplasm of prostate (principal); Z86.718 Personal history of other venous thrombosis and embolism; Z86.711 Personal history of pulmonary embolism; Z79.01 Long term (current) use of anticoagulants; I10 Essential (primary) hypertension
CPT/HCPCS: 36415; 80053; 84153; 85025; 96401; 96402; 99214; 99215; G0463; J9217

== ENCOUNTER 2024-11-26 16:03 | Emergency (ER) | payer MEDICARE, BC, SELFPAY ==
--- OUTSIDE RECORDS SUMMARY | 2024-11-26 16:05 | XMS_ITS | Encounter Summary ---
Author Organization [facility] Address [address] [place] [address]. [place] [address] Care Team Providers Care Protective Services Officer Name Role Phone Bryan Jones MD Unavailable [phone] Luke Ricci Primary Care Provider Winifred Boyle MD Unavailable + [phone] Encounter Details Date Type Department Care Team (Late st Contact Info) Description 04/19/2023 [facility] Medical Advice [facility] [address] [address] Waleska Torres Social History Tobacco Use Types Packs/Day Years Used Date Smoking Tobacco: Former Smokeless Tobacco: Former Alcohol Use Standard Drinks/Week Comments Not Currently 0 (1 standard drink = 0.6 oz pur e alcohol) PHQ-2 Answer Date Recorded PHQ-2 Score 0 10/26/2021 Adolescent Education Answer Date Record ed Getting School Help Needed Not on file 01/12 Sex and Gender Information Value Date Recorded Sex Assigned at Not on file Legal Sex Male 11:42 AM CDT Gender Identity Not on file Sexual Orientation Not on file documented as of this encounter Plan of Treatment Not on file documented as of this encounter Visit Diagnoses Not on filedocumented in this encounter Care Teams Protective Services Officer Relationship Specialty Start Date End Date Luke Ricci [address] [place] [address] PCP - General Family Medicine 12/21/22 Bryan Jones MD [address] [place] [address] Assigned PCP 10/12/21 Winifred Boyle MD [address] [facility] [address] [place] [address] Assigned Heart and Vascular Provider 12/29/22 documented as of this encounter
--- OUTSIDE RECORDS SUMMARY | 2024-11-26 16:05 | XMS_ITS | Clinical Summary ---
Author Organization [facility] Address [address], [place] [address] Care Team Providers Care Textiles Sales Representative Name Role Phone Luke Ricci MD Primary Care Provider [phone] Source Comments You are receiving this document as you are listed as the primary care provider,follow-up provider, or the patient has been referred to you for consultation.This is in compliance with the Medicare and[facility] EHR Incentive Program,which states Providers who transition their patient to another setting of careor provider of care or refers their patient to another provider of care shouldprovide summary care record for each transition of care or referral. [facility] Allergies No known active allergies Medications potassium chloride (KLOR-CON M) 20 MEQ ER tablet Take 1 Tablet (20 mEq) by mouth daily. 3 Active mupirocin (BACTROBAN) 2 % ointment SMARTSI Application Topical 2-3 Times Daily 3 Active abiraterone (ZYTIGA) 250 MG tablet Take by mouth. 3 Active amLODIPine (NORVASC) 5 MG tablet Take 1 Tablet (5 mg) by mouth daily. 3 Active ELIQUIS 5 MG tablet Take 1 Tablet (5 mg) by mouth two times a day. 3 Active atorvastatin (LIPITOR) 20 MG tablet Take 1 Tablet (20 mg) by mouth daily. 3 Active Blood Glucose Monitoring Suppl (ACCU-CHEK GUIDE ME) w/Device KIT 3 Active cephalexin (KEFLEX) 500 MG capsule Take 1 Capsule (500 mg) by mouth three times a day. 3 Active desonide (DESOWEN) 0.05 % cream Apply topically. 3 Active doxazosin (CARDURA) 2 MG tablet Take 1 Tablet (2 mg) by mouth. 3 Active XTANDI 40 MG TABS Take by mouth. 3 Active furosemide (LASIX) 20 MG tablet Take 2 Tablets (40 mg) by mouth. 3 Active gabapentin (NEURONTIN) 100 MG capsule One oral at bedtime, increase by one every 4 days to max of 400 mg. 3 Active [employer] BLOOD GLUCOSE TEST test strip daily. 3 Active labetalol (TRANDATE) 100 MG tablet Take 1 Tablet (100 mg) by mouth two times a day. 3 Active ACCU-CHEK SOFTCLIX lancets SMARTSIG:Topical 3 Active levothyroxine (SYNTHROID) 100 MCG tablet Take 1 Tablet (100 mcg) by mouth daily. 3 Active lisinopril (ZESTRIL) 40 MG tablet Take 1 Tablet (40 mg) by mouth daily. 3 Active metFORMIN XR (GLUCOPHAGE XR) 500 MG 24 hour release tablet Take 1 Tablet (500 mg) by mouth. 3 Active potassium chloride (KLOR-CON M) 10 MEQ tablet Take 1 Tablet (10 mEq) by mouth. 3 Active Social History Tobacco Use Types Packs/Day Years Used Date Smoking Tobacco: Never Assessed Sex and Gender Information Value Date Recorded Sex Assigned at Not on file Legal Sex Male 4:12 PM CDT Gender Identity Not on file Sexual Orientation Not on file Last Filed Vital Signs Vital Sign Reading Time Taken Comments Blood Pressure - - Pulse - - Temperature - - Respiratory Rate - - Oxygen Saturation - - Inhaled Oxygen Concentration - - Weight 93 kg (205 lb) 05/01/2023 12:56 PM WILDLIFE ECOLOGY PROFESSOR Height 173 cm (5' 8.11) 03/27/2023 1:03 PM WILDLIFE ECOLOGY PROFESSOR Body Mass Index 31.07 03/27/2023 1:03 PM WILDLIFE ECOLOGY PROFESSOR Plan of Treatment Health Maintenance Due Date Last Done Comments Medicare Welcome Visit 1940 Zoster/Shingles Vaccine (2 o f 3) 02/26/2011 01/01/2011 Pneumococcal Vaccine 50+ Yrs (2 of 2 - PCV) 01/02/2012 01/01/2011 RSV Vaccine (1 - 1-dose 75+ series) 2014 DTaP/Tdap/Td Vaccine (2 - Tdap) 01/01/2021 01/01/2011, 04/16/2000 COVID-19 Vaccine (4 - 2023-2 5 season) 2023 05/04/2021, 09/13/2020, 08/16/2020 Influenza Vaccine (#1) 2024 HepA Vaccine Aged Out No longer eligi ble based on patient's age to complete this topic HepB Vaccine Aged Out No longer eligi ble based on patient's age to complete this topic Hib Vaccine Aged Out No longer eligi ble based on patient's age to complete this topic MCV4 Vaccine Aged Out No longer eligi ble based on patient's age to complete this topic Meningococcal B Vaccine Aged Out No l onger eligible based on patient's age to complete this topic Insurance [facility] MEDICARE ADVANTAGE Care Teams Textiles Sales Representative Relationship Specialty Start Date End Date Luke Ricci MD [address] [place] [address] PCP - General Family Practice 03/12/23
--- OUTSIDE RECORDS SUMMARY | 2024-11-26 16:05 | XMS_ITS | Clinical Summary ---
Author Organization [facility] Address [address] [place] [address]. [place] [address] Care Team Providers Care Materials Tech Name Role Phone Bryan Jones MD Unavailable [phone] Luke Ricci Primary Care Provider Winifred Boyle MD Unavailable [phone] Allergies Active Allergy Reactions Criticality Noted Date Comments Adhesive Tape Rash Low 01/01/2011 rash Amlodipine Other (See Comments) 05/24/2021 Atenolol Other (See Comments) Low 09/10/2022 Carvedilol Other (See Comments) 09/10/2022 Chlorthalidone Other (See Comments) 09/10/2022 Creatinine up to 2.24 March 2022. Hydrochlorothiazide Other (See Comments) High 2010 Latex Rash High 03/13/2021 Medications abiraterone (ZYTIGA) 250 MG tablet 2 times daily. 2 Active levothyroxine (SYNTHROID/LEVOTHR OID) 100 MCG tablet Take 100 mcg by mouth 2 Active lisinopril (ZESTRIL) 40 MG tablet Take 1 tablet by mouth daily 2 Active potassium chloride ER (K-TAB/KLOR-CON) 10 MEQ CR tablet 2 Active atorvastatin (LIPITOR) 20 MG tablet Take 20 mg by mouth daily Active furosemide (LASIX) 20 MG tablet Take 20 mg by mouth daily Active doxazosin (CARDURA) 2 MG tablet Take 2 mg by mouth At Bedtime Active metFORMIN (GLUCOPHAGE XR) 500 MG 24 hr tablet Take 500 mg by mouth daily (with dinner) Active XTANDI 40 MG tablet 3 Active hydrALAZINE (APRESOLINE) 10 MG tablet Take 10 mg by mouth. 4 Active apixaban ANTICOAGULANT (ELIQUIS) 5 MG tabletIndications: History of deep venous thrombosis (DVT) of distal vein of left lower extremity Take 1 tablet (5 mg) by mouth 2 times daily. 60 tablet 5 4 Active Active Problems Problem Noted Date Diagnosed Date Prostate cancer 10/26/2021 Overview (10/26/2021): history of prostate cancer treated with radical prostatectomy 2005 and subsequent salvage radiation and hormone deprivation. Now with a biochemical recurrence 2020 Primary hypertension 10/26/2021 Type 2 diabetes mellitus wit hout complication, without long-term current use of insulin 10/26/2021 Pulmonary embolus, left 10/26/2021 Social History Tobacco Use Types Packs/Day Years Used Date Smoking Tobacco: Former Smokeless Tobacco: Former Tobacco Cessation:Counseling Given: Not Answered Alcohol Use Standard Drinks/Week Comments Not Currently 0 (1 standard drink = 0.6 oz pur e alcohol) PHQ-2 Answer Date Recorded PHQ-2 Score 0 12/25/2023 Adolescent Education Answer Date Record ed Getting School Help Needed Not on file 01/12 Sex and Gender Information Value Date Recorded Sex Assigned at Not on file Legal Sex Male 11:42 AM CDT Gender Identity Not on file Sexual Orientation Not on file Last Filed Vital Signs Vital Sign Reading Time Taken Comments Blood Pressure 167/79 12/25/2023 11:14 AM CDT Pulse 54 12/25/2023 11:14 AM CDT Temperature 36.5 C (97.7 F) 10/26/2021 9:59 AM CDT Respiratory Rate 16 10/26/2021 9:59 AM CDT Oxygen Saturation 96% 12/25/2023 11:14 AM CDT Inhaled Oxygen Concentration - - Weight 84.5 kg (186 lb 3.2 oz) 12/25/2023 11:14 AM CDT Height 171.5 cm (5' 7.5) 12/21/2022 12:28 PM CD T Body Mass Index 28.73 12/21/2022 12:28 PM CDT Plan of Treatment Health Maintenance Due Date Last Done Comments A1C 1940 ADVANCE CARE PLANNING 1940 ANNUAL REVIEW OF HM ORDERS 1940 BMP 1940 DIABETIC FOOT EXAM 1940 EYE EXAM 1940 LIPID 1940 MICROALBUMIN 1939 TSH W/FREE T4 REFLEX 1939 FALL RISK ASSESSMENT 01/10/2004 ZOSTER VACCINE (2 of 3) 02/26/2011 01/01/2011 PNEUMOCOCCAL VACCINE 50+ YEARS (2 of 2 - PCV) 01/02/2012 01/01/2011 RSV VACCINE (1 - 1-dose 75+ series) 2014 DTAP/TDAP/TD VACCINE (2 - Td or Tdap) 01/01/2021 01/01/2011, 04/16/2000 MEDICARE ANNUAL WELLNESS VISIT 05/03/2022 05/03/2021, 05/03/2021 COVID-19 VACCINE (4 - 2023-2 5 season) 2023 05/04/2021, 09/13/2020, 08/16/2020 PHQ-2 (once per calendar year) 2024 12/25/2023, 10/26/2021 INFLUENZA VACCINE (#1) 2024 HPV VACCINE (No Doses Required) Completed MENINGITIS VACCINE Aged Out No longer eligible based on patient's age to complete this topic Insurance [employer] MEDICARE ADVANTAGE [employer] MEDICARE ADVANTAGE Care Teams Materials Tech Relationship Specialty Start Date End Date Luke Ricci [address] [place] [address] PCP - General Family Medicine 12/21/22 Bryan Jones MD [address] [place] [address] Assigned PCP 10/12/21 Winifred Boyle MD [address] [place] [address] Assigned Heart and Vascular Provider 12/29/22
--- OUTSIDE RECORDS SUMMARY | 2024-11-26 16:05 | XMS_ITS | Clinical Summary ---
Author Organization [facility] Address [address] [place] [address] Care Team Providers Care Engine Setter Name Role Phone Ijeoma Prado Unavailable [phone] Christi Ocasio DO Primary Care Provider Pramod Layton MD Unavailable Jennie Magaña NP Unavailable Allergies Active Allergy Reactions Criticality Noted Date Comments Adhesive Rash 01/01/2011 rash Amlodipine Edema 05/24/2021 10mg Atenolol Bradycardia 09/10/2022 Carvedilol Bradycardia 09/10/2022 Chlorthalidone Other - Describe In Comment Field 09/10/2022 Creatinine up to 2.24 March 2022. Hydrochlorothiazide Pancreatitis 02/14/2011 Latex Rash 03/13/2021 Medications blood-glucose meterIndications:Co ntrolled type 2 diabetes mellitus without complication, without long-term current use of insulin (HC) Inject subcutaneous . Dispense meter, test strips, lancets covered by pt ins. E11.9 NIDDM type II - Test 1 time/day 1 Each 3 Active enzalutamide (XTANDI) 40 mg capsule Take 40 mg by mouth once daily. 3 Active blood sugar diagnostic (Accu-Chek Guide test strips) stripIndications:Co ntrolled type 2 diabetes mellitus without complication, without long-term current use of insulin (HC) TEST BLOOD SUGAR ONCE DAILY DIRECTED 100 Each 3 4 Active sotaloL (BETAPACE) 80 mg tabletIndications:S VT (supraventricular tachycardia) (HC) Take 0.5 Tablets (40 mg) by mouth two times daily before meals. 90 Tablet 3 4 Active apixaban (ELIQUIS) 5 mg tabletIndications:S VT (supraventricular tachycardia) (HC) Take 1 Tablet (5 mg) by mouth two times daily. 180 Tablet 3 4 Active atorvastatin (LIPITOR) 20 mg tabletIndications:H yperlipidemia, unspecified hyperlipidemia type Take 1 Tablet (20 mg) by mouth at bedtime. 90 Tablet 3 5 Active levothyroxine (SYNTHROID) 100 mcg tabletIndications:H ypothyroidism (acquired) Take 1 Tablet (100 mcg) by mouth once daily. 90 Tablet 3 5 Active metFORMIN (GLUCOPHAGE XR) 500 mg Extended-Release tabletIndications:C ontrolled type 2 diabetes mellitus without complication, without long-term current use of insulin (HC) Take 1 Tablet (500 mg) by mouth once daily with evening meal. 90 Tablet 3 5 Active hydrALAZINE (APRESOLINE TABLET) 50 mg tabletIndications:H TN (hypertension) Take 1 Tablet (50 mg) by mouth three times daily. 270 Tablet 3 5 Active spironolactone (ALDACTONE) 50 mg tabletIndications:H TN (hypertension) TAKE ONE TABLET BY MOUTH EVERY DAY IN THE MORNING 90 Tablet 3 5 Active lisinopriL 40 mg tabletIndications:E ssential hypertension TAKE ONE TABLET BY MOUTH ONCE DAILY 90 Tablet 1 5 Active doxazosin 2 mg tabletIndications:B enign essential HTN TAKE ONE TABLET BY MOUTH EVERY DAY AT BEDTIME 90 Tablet 2 5 Active furosemide 20 mg tabletIndications:B enign essential HTN TAKE ONE TABLET (20 MG) BY MOUTH ONCE DAILY IN THE MORNING 90 Tablet 2 5 Active Active Problems Problem Noted Date Diagnosed Date Stage 3b chronic kidney disease 10/13/2024 Weakness 09/02/2023 Status post total hip replacement, left 05/13/20 24 Rupture of right biceps tendon 09/02/2023 Right shoulder tendinitis 09/02/2023 Osteoarthritis of right shoulder 09/02/2023 Osteoarthritis of left shoulder 09/02/2023 Osteoarthritis of right knee 09/02/2023 Osteoarthritis of carpometac arpal (CMC) joint of right thumb 09/02/2023 Osteoarthritis of carpometacarpal (CMC) joint of left thumb 09/02/2023 Lumbar degenerative disc disease 09/02/2023 Dyslipidemia 09/02/2023 Diabetes 09/02/2023 Deep vein thrombosis of left femoral vein 2023 Retained myringotomy tube in left ear 08/13/2023 Congestive heart failure 04/24/2023 Restless legs 03/15/2023 Lymphedema of left leg 03/15/2023 Stage 3a chronic kidney disease 10/19/2022 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 Now with a biochemical recurrence 2020 Acute deep vein thrombosis ( DVT) of femoral vein of left leg 06/20/2021. 06/20/2021 Pulmonary embolus, left (HC). 06/20/2021. 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 Acute pancreatitis 01/01/2011 2 Personal history of malignan t neoplasm of prostate 04/30/2019 Personal History of Colonic Polyps 04/26/2020 Overview (06/20/2012): Colonoscopy 11/2008 diverticulosis repeat in 5 years Colonoscopy 05/2012 polyp repeat in 3 years Encounters Date Type Department Care Team Description 10/16/2024 [place] [facility] [address] [place] [address] Laboratory, ld Follow Up (CE[facility], Please direct call back to [facility] Nephrology client strategist Pool./Nephrology Post Visit (10/13/2024) RN Follow-up Call /) 10/13/2024 10:00 AM CDT [place] [facility] [address] [place] [address] Jennie Magaña NP Follow Up (3 month renal follow-up) 10/13/2024 Travel 10/07/2024 Telephone [facility] [address] [place] [address] Shaqra, Christi Maria T, DO Results 10/06/2024 Orders Only [facility] [address] [place] [address] Shaqra, Christi Maria T, DO <No scans attached> 10/06/2024 Travel 08/31/2024 Refill [facility] [address] [place] [address] Shaqra, Christi Maria T, DO Refill Request (Furosemide) 08/30/[address] [address] Shaqra, Christi Maria T, DO Refill Request (Doxazosin) from Last 3 Months Immunizations Immunization Administration Dates Next Due COVID-19 vaccine (Moderna 100mcg/0.5mL) PF, MDV 05/04/2021 Pneumococcal Poly,23-Valent (Pneumovax) 01/02/20 11 Td (Age >=7 Years) 04/16/2000 Tdap 01/01/2011 Zoster (Zostavax-ZVL, live) 01/01/2011 Family History Medical History Relation Name Comments Cancer-prostate Brother Anesthesia Problem Neg. Asthma Son 1 Allergies Son 2 Relation Name Status Comments Brother Neg. Son 1 Son 2 Social History Tobacco Use Types Packs/Day Years Used Date Smoking Tobacco: Former Cigarettes 1 35 0 04/22/1945 - 04/22/1979 Smokeless Tobacco: Former Chew Quit: 04/22/1979 Tobacco Cessation:Counseling Given: Yes Alcohol Use Standard Drinks/Week Comments Yes 0 (1 standard drink = 0.6 oz pur e alcohol) PHQ-2 Answer Date Recorded PHQ-2 TOTAL SCORE 0 04/27/2024 Social Connections Answer Date Recorded Do you often feel lonely or isolated from those around you? 0 05/22/2024 Financial Resource Strain Answer Date R ecorded Difficulty of Paying Living Expenses 3 05/22/2024 Difficulty of Paying Living Expenses Not on file 05/22/2024 Food Insecurity Answer Date Recorded Do you worry your food will run out before you are able to buy more? 1 05/22/2024 Transportation Needs Answer Date Record ed Does lack of transportation keep you from medica l appointments? 1 05/22/2024 Does lack of transportation keep you from work, meetings or getting things that you need? 1 05/22/2024 Housing Stability Answer Date Recorded What is your housing situation today? 1 05/22/2024 Interpersonal Safety Answer Date Record ed Are you being hit, kicked, p ushed or yelled at (see row info)? No 06/26/2023 Interpersonal Safety Abuse 12 - 18 Not on file 06/26/2023 Interpersonal Safety Ambulatory Vulnerability No t on file 06/26/2023 Utilities Answer Date Recorded Do you have trouble paying f or utilities (for example, heat, electricity, water, phone)? 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 Not on file Obstetrics History Last Filed Vital Signs Vital Sign Reading Time Taken Comments Blood Pressure 118/62 10/13/2024 9:57 AM CDT Pulse 46 10/13/2024 9:57 AM CDT manual Temperature 36.5 C (97.7 F) 06/26/2023 12:19 PM STEAM FITTER HELPER Respiratory Rate 16 06/26/2023 12:1 9 PM STEAM FITTER HELPER Oxygen Saturation 99% 10/13/2024 9:5 7 AM CDT Inhaled Oxygen Concentration - - Weight 88.6 kg (195 lb 4.8 oz) 10/14/19 9:57 AM CDT with shoes Height 169.5 cm (5' 6.73) 04/27/2024 1 0:37 AM STEAM FITTER HELPER Body Mass Index 30.83 04/27/2024 10:37 AM STEAM FITTER HELPER Plan of Treatment Upcoming Encounters Date Type Department Care Team (Late st Contact Info) Description 03/04/2025 9:30 AM STEAM FITTER HELPER Orders Only [facility] [address] [place] [address] Lab, [place] 03/11/2025 10:00 AM STEAM FITTER HELPER [place] [facility] [address] [place] [address] Jennie Magaña, ZHENG [address] [place] [address] Health Maintenance Due Date Last Done Comments Zoster (shingles) series for age 50+ (1 of 2) 02/26/2011 01/01/2011 Pneumococcal series for age 50+ (2 of 2 - PCV) 01/02/2012 01/01/2011 RSV vaccine for adults or (1 - 1-dose 75+ series) 2014 Tetanus booster 01/01/2021 01/01/2011, 04/16/2000 COVID-19 vaccine series ( season) 2023 05/04/2021, 09/13/2020, 08/16/2020 Influenza Vaccine (#1) 2024 BMI (ht and wt on same day) for age 18+ 04/27/2025 04/27/2024, 04/06/2024, 02/17/2024, Additional history exists Depression screening for age 12+ 04/27/2025 04/27/2024, 05/03/2021, 04/26/2020, Additional history exists Medicare Wellness for age 65+ 04/28/2025 04/27/2024, 05/03/2021, 05/02/2018, Additional history exists Hepatitis B series for 19+ Aged Out N o longer eligible based on patient's age to complete this topic Medical Devices Implanted Type Area Physician Primary Care Sports Medicine Device Identifier Shelf Expiration Date Model / Serial / Lot Lens Iol Zlb00 22.5 - [id number] Implanted:Qty: 1 on 09/21/2014 by Forest Huggins MD at [facility] Right: Eye [employer] 01/27/2018 [id number]# / [id number] / Lens Iol Zlb00 22.5 - [id number] Implanted:Qty: 1 on 10/26/2014 by Forest Huggins MD at [facility] Left: Eye [employer] 07/27/2018 [id number]# / [id number] / Procedures Procedure Name Priority Date/Time Associated Diagnosis Comments BASIC METABOLIC PANEL Routine 10/06/2024 9:47 AM CDT HTN (hypertension) from Last 3 Months Results * (ABNORMAL) BASIC METABOLIC PANEL (10/06/2024 9:47 AM CDT) GLUCOSE 123(H) 65 - 99 mg/dL [facility] Comment: Fasting reference interval For someone without known diabetes, a glucose value between 100 and 125 mg/dL is consistent with prediabetes and should be confirmed with a follow-up test. UREA NITROGEN (BUN) 38(H) 7 - 25 mg/dL [facility] CREATININE 1.65(H) 0.70 - 1.22 mg/dL [facility] EGFR 40(L) > OR = 60 mL/min/1.7 3m2 [facility] BUN/CREATININE RATIO 23(H) 6 - 22 (calc) [facility] SODIUM 137 135 - 146 mmol/L [facility] POTASSIUM 4.7 3.5 - 5.3 mmol/L [facility] CHLORIDE 104 98 - 110 mmol/L [facility] CARBON DIOXIDE 25 20 - 32 mmol/L [facility] ELECTROLYTE BALANCE 8 7 - 17 mmol/L (calc) [facility] CALCIUM 8.9 8.6 - 10.3 mg/dL [facility] Blood BLOOD SPECIMEN / Unknown 10/06/2024 9:47 AM CDT 10/06/2024 9:47 AM CDT us Christi Maria T Singhqra DO CHEMISTRY Final Result [facility] [address] [place] [address], [facility] [address] [place] [address] from Last 3 Months Insurance MEDICARE PART B HB ONLY MEDICARE PART A HB ONLY [facility] MEDICARE PB ONLY Advance Directives Documents on File Type Date Recorded Patient Csr Technician Expl anation Healthcare Directive 08/08/2021 022 * Full Code (Latest Code Status on File) Date Activated Date Inactivated Comments 10/26/2014 8:02 AM 10/26/2014 12:05 PM * Full Code Date Activated Date Inactivated Comments 09/21/2014 6:32 AM 09/21/2014 10:59 AM Care Teams Engine Setter Relationship Specialty Start Date End Date Christi Ocasio DO [address] [place] [address] PCP - General Family Practice 07/14/24 Ijeoma Prado AuD [address] [place] [address] Audiology 03/04/14 [place] [address] [place] [address] Nephrology Nephrology 07/14/24 [place] [address] [place] [address] Nephrology Nephrology 10/13/24
[2024-11-26 16:18] VITALS: BP 193/96; PULSE 71; RESP 18; O2SAT 96
--- NOTE | 2024-11-26 16:29 | CRLHL7_ITS ---
For Patients: As a result of the Cures Act, medical imaging exams and procedure reports are released immediately into your electronic medical record. You may view this report before your referring provider. If you have questions, please contact your health care provider. Indication: Left lower quadrant and right lower quadrant pain Technique: CT through the abdomen and pelvis following 95 mL Isovue 370 IV contrast Comparison: CT chest abdomen pelvis performed 09/19/2021 Findings: Lower chest: No acute abnormality appreciated. Hepatobiliary: No significant parenchymal abnormality is appreciated. Spleen: Unremarkable. Pancreas: No acute abnormality appreciated. Adrenal glands: No acute abnormality appreciated. Kidneys: No significant parenchymal abnormality appreciated. No visualized calculi. No hydronephrosis. Bowel: No obstruction. Severe wall thickening and stranding involving the sigmoid colon. Scattered diverticula noted. The appendix is visualized and appears unremarkable. Vascular: Calcified and noncalcified atherosclerotic plaque. Lymph nodes: No gross lymphadenopathy. Peritoneum: Inflammatory stranding with no organized fluid collection or free air. : Allowing for streak artifact, grossly unremarkable. Soft tissues: No acute abnormality appreciated. Fat containing right greater than left inguinal hernias. Bones: No acute fracture. No lytic or blastic lesion. Bilateral hip replacements. Degenerative changes of the spine. L5 pars defects. Impression: Severe nonspecific colitis of the sigmoid colon. Please note that all CT scans at this facility use dose modulation, iterative reconstruction, and/or weight-based dosing when appropriate to reduce radiation dose to as low as reasonably achievable. Dictated by Giovany Fontanez MD @ 11/26/2024 5:50:50 PM (Electronically Signed)
[2024-11-26 16:47] VITALS: TEMP 36.6
[2024-11-26 16:52] LABS: Lactate Sepsis w/Reflex* 1.1 mmol/L (0.5-1.9)
[2024-11-26 16:53] LABS: Hematocrit 41.8 % (37.0-53.0); Hemoglobin* 14.0 gm/dL (13.5-17.5); Immature Granulocytes Abs Auto 0.01 K/uL (0.00-0.30); Immature Granulocytes Pct Auto 0.1 %; Mean Corpuscular HGB Conc 34 gm/dL (32-36); Mean Corpuscular Hemoglobin 31 pg (26-34); Mean Corpuscular Volume 91 fL (80-100); RDW Coefficient of Variation % 12.7 % (11.5-15.5); Red Blood Count 4.59 m/uL (4.30-5.90); White Blood Count* 8.59 K/uL (4.50-11.00)
[2024-11-26 16:57] LABS: Appearance Urine Clear (Clear)
[2024-11-26 16:58] LABS: Lymphocytes Absolute Auto 1.10 K/uL (0.90-2.90); Slide Review Reflex No
[2024-11-26] MEDS: 0.9 % SODIUM CHLORIDE 500 ML 500 ML IV (17:06)
[2024-11-26 17:21] LABS: Albumin* 3.8 g/dL (3.3-5.0); Chloride* 102 mmol/L (96-114); Sodium* 134 mmol/L (135-149)
[2024-11-26 17:22] LABS: Potassium* 4.6 mmol/L (3.6-5.1)
[2024-11-26 17:24] LABS: Alanine Aminotransferase* 15 U/L (4-50); Anion Gap 7 mEq/L (7-15); Aspartate Amino Transferase* 34 U/L (12-35); Blood Urea Nitrogen* 37 mg/dL (7-30); Carbon Dioxide* 25 mmol/L (20-32); Creatinine* 1.5 mg/dL (0.5-1.5); Estimated Glomerular Filt Rate 45 ml/min; Total Protein* 6.5 g/dL (6.0-8.3)
[2024-11-26 17:25] LABS: Alkaline Phosphatase* 66 U/L (40-150); Bilirubin Direct* 0.2 mg/dL (0.0-0.5); Bilirubin Total* 0.6 mg/dL (0.1-1.5); Calcium* 9.0 mg/dL (8.4-10.6); Glucose* 114 mg/dL (60-115)
--- NOTE | 2024-11-26 17:30 | ED_ITS ---
HPI - General Adult General Date Seen: 11/26/24 Chief complaint: Abdominal Pain Stated complaint: Vomiting, Diarrhea, stomach Pain Time Seen by Provider: 11/26/24 16:19 History of Present Illness HPI narrative: Patient is an 84-year-old here with his for evaluation of vomiting diarrhea and abdominal pain. Symptoms started this morning initially with a few episodes of vomiting. Vomiting has subsided but he still feels nauseated. He has had a few episodes of diarrhea which are small, nonbloody. He also has lower abdominal pain in the suprapubic area and into the left lower quadrant. He has not had a fever, has no history of similar pain. Does have a history of appendectomy as well as prostatectomy. A couple of family members have diverticulitis and they became concerned that this might be diverticulitis. Related Data Home Medications ?Medication ?Instructions ?Recorded ?Confirmed apixaban 5 mg tablet (Eliquis) 5 mg PO Q12H 11/02/21 0 11/26/24 levothyroxine 100 mcg tablet 100 mcg PO DAILY 11/02/21 11/26/24 lisinopril 40 mg tablet 40 mg PO DAILY 11/02/2111/13 atorvastatin 20 mg tablet 20 mg PO HS 06/05/22 5 doxazosin 2 mg tablet 2 mg PO HS 11/06/22 11/26/24 furosemide 20 mg tablet 20 mg PO DAILY 11/06/2211/13 blood sugar diagnostic (Accu-Chek #10 ea 12/04/2210/21 Guide test strips) blood-glucose meter (Accu-Chek #1 ea 12/04/22 11/16/24 Guide Me Glucose Meter) lancets (Accu-Chek Softclix #100 ea 12/04/22 11/16/24 Lancets) metformin 500 mg tablet,extended 500 mg PO DAILY 12/0411/26/24 release 24 hr sotalol 80 mg tablet 40 mg PO Q12H 02/21/2411/26 hydralazine 50 mg tablet 50 mg PO 3XD 11/16/24 spironolactone 50 mg tablet 50 mg PO DAILY 11/16/24 Previous Rx's ?Medication ?Instructions ?Recorded potassium chloride 20 mEq 20 meq PO QDAY #5 tabs 02/19 tablet,extended release ipratropium 0.5 mg-albuterol 3 mg 3 ml inhalation Q4-6 H PRN 04/16/23 (2.5 mg base)/3 mL nebulization shortness of breath or wheezing soln #90 mL enzalutamide 40 mg capsule (Xtandi) 120 mg (3 x 40 mg) PO QDAY #90 caps 05/13/24 amoxicillin 875 mg-potassium 1 tab PO BID #20 tabs 11/13 clavulanate 125 mg tablet Allergies Allergy/AdvReac Type Severity Reaction Status Date / Time hydrochlorothiazide Allergy Severe pancreatiti Verified 11/26/24 16:56 s latex Allergy Intermediate rash Verified 11/26/24 16:56 adhesive Allergy Verified 11/26/24 16:56 atenolol AdvReac Mild bradycardia Verified 11/26/24 16:56 amlodipine AdvReac Unknown edema Verified 11/26/24 16:56 carvedilol AdvReac bradycardia Verified 11/26/24 16:56 Review of Systems Status of ROS: Reports: 10 or more systems reviewed and unremarkable except as noted in History and below [facility] Medical History Right shoulder tendinitis ?M77.8 - Other enthesopathies, not elsewhere classified (ICD-10) S/P radiation therapy ?Z92.3 - Personal history of irradiation (ICD-10) Weakness ?R53.1 - Weakness (ICD-10) Prostate cancer metastatic to multiple sites ?C61 - Malignant neoplasm of prostate (ICD-10) UTI (urinary tract infection) ?N39.0 - Urinary tract infection, site not specified (ICD-10) Pain of right hip ?M25.551 - Pain in right hip (ICD-10) Malignant neoplasm of prostate (08/2010) ?C61 - Malignant neoplasm of prostate (ICD-10) Constipation ?K59.00 - Constipation, unspecified (ICD-10) Acute pancreatitis (12/26/10) ?K85.90 - Acute pancreatitis without necrosis or infection, unspecified (ICD- 10) Acute UTI ?N39.0 - Urinary tract infection, site not specified (ICD-10) Bradycardia ?R00.1 - Bradycardia, unspecified (ICD-10) Left femoral vein DVT ?I82.412 - Acute embolism and thrombosis of left femoral vein (ICD-10) Pulmonary embolism ?I26.99 - Other pulmonary embolism without acute cor pulmonale (ICD-10) Surgical History 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 Mother No problems noted. Social History Narrative: He is here with his son Forest who is healthcare power of assistant city attorney. Code status is DNR. He is a former cigarette smoker, quit in 1979 after 35 pack year history. He does not drink alcohol. Highest level of school completed/degree received: high school graduate Smoking Status: Former smoker Do you use any of these nicotine containing products: None Second hand tobacco smoke exposure: No How often do you have a drink containing alcohol: never How often do you have six or more drinks on one occasion: Never AUDIT-C Alcohol total score: 0 Non-prescribed substance use: denies use Caffeine: Yes service: Yes Exam Narrative: Exam Narrative: Vital signs reviewed In general, alert, nontoxic elderly male. Looks comfortable. Emesis bag. Head: Normocephalic, atraumatic. Eyes: Sclera clear. Pupils equal and reactive. ENT: Mucous membranes moist. Neck: Supple without adenopathy. Heart: Regular rate and rhythm without murmur. Lungs: Clear. No increased work of breathing, crackles or wheezes. Abdomen: Abdomen is soft, nondistended. He has suprapubic and left pelvic tenderness without rebound guarding or rigidity. Extremities: Well perfused, pulses intact. No significant edema. Neurologic: Alert, conversant. Speech fluent, face symmetric. Moves all extremities equally. Skin: Warm, dry well perfused. Affect: Normal. Const: Vital Signs, click to edit/add: Vital Signs - 24 hr 11/26/24 16:18 11/26/24 16:47 Temperature 98 F Pulse Rate [Pulse Oximeter] 71 Respiratory Rate 18 Blood Pressure [Le ft Upper Arm] 193/96 H Pulse Oximetry 96 Oxygen Delivery Me thod Room Air Course Course ED Course: Diagnostic considerations would include colitis, gastroenteritis, diverticulitis, bowel obstruction, kidney stone, urinary tract infection, among others. I think it is reasonable given his age and presentation to do a CT scan, labs pending. I gave him 500 mL of normal saline as well as 4 mg of Zofran IV. Labs notable for white blood cell count of 8.6 with 82% neutrophils. Hemoglobin normal. Metabolic panel is notable for BUN of 37, creatinine 1.5. This is his baseline. Lactate is 1.1, CRP is negative. LFTs normal, lipase 81. Urinalysis shows a negative dip, of the micro is pending. CT scan by my review does show some inflammatory changes surrounding the sigmoid colon. He is feeling improved, no further nausea or vomiting. I reviewed his CT report per Radiology. They note severe wall thickening and stranding involving the sigmoid colon, he does have scattered diverticula, they do not definitively say that this is diverticulitis. Patient has not had a colonoscopy in the last 10 years. At this time, I think it is reasonable to let him go home. I am going to cover him with Augmentin, will give this the weekend and he should be seen beginning of next week for recheck in his clinic. Keep diet plan, recommended clears for the next couple of days and then advance if he is feeling better. Discussed reasons to return such as worsening or severe pain, fevers, uncontrolled vomiting, bloody stools etc.. Vital Signs Vital signs: Initial Vital Signs Pulse Rate 71 11/26/24 16:18 Respiratory Rate 18 11/26/24 16:18 Blood Pressure 193/96 H 11/26/24 16:18 Blood Pressure Mean 128 H 11/26/24 16:18 Blood Pressure Position Semi-Fowlers 11/26/24 16:18 Pulse Oximetry 96 11/26/24 16:18 Oxygen Delivery Method Room Air 11/26/24 16:18 Vital Signs Pulse Rate 71 11/26/24 16:18 Respiratory Rate 18 11/26/24 16:18 Blood Pressure 193/96 H 11/26/24 16:18 Pulse Oximetry 96 11/26/24 16:18 Oxygen Delivery Method Room Air 11/26/24 16:18 Temperature 98 F 11/26/24 16:47 Pulse Rate 71 11/26/24 16:18 Respiratory Rate 18 11/26/24 16:18 Blood Pressure 193/96 H 11/26/24 16:18 Pulse Oximetry 96 11/26/24 16:18 Oxygen Delivery Method Room Air 11/26/24 16:18 Medications Administered Medications: Discontinued Medications Generic Name Dose Route Start Last Admin Trade Name Freq PRN Reason Stop Dose Admin Amoxicillin/Clavulanate Potassium 875 mg 11/26/24 17:57 11/26/24 18:07 Amoxicillin/Clavulanate 875 Mg/125 Mg Tablet PO 11/26/24 17:58 875 mg ONCE ONE Administration Sodium Chloride 500 mls @ 500 mls/hr 11/26/24 16:32 11/26/24 18:08 0.9 % Sodium Chloride 500 Ml IV 11/26/24 17:31 Infused .Q1H ONE Infusion Ondansetron HCl 4 mg 11/26/24 16:32 11/26/24 18:08 Ondansetron 2 Mg/Ml Inj IVP 11/26/24 16:33 Not Given ONCE ONE Medical Decision Making Lab Data Lab results reviewed: Yes I reviewed the patient's lab results Labs: Lab Results 11/26/24 11/26/24 Range/Units 16:45 16:53 WBC 8.59 (4.50-11.00) K/uL RBC 4.59 (4.30-5.90) m/uL Hgb 14.0 (13.5-17.5) gm/dL Hct 41.8 (37.0-53.0) % MCV 91 (80-100) fL MCH 31 (26-34) pg MCHC 34 (32-36) gm/dL RDW Coeff of Kevyn 12.7 (11.5-15.5) % Plt Count 177 (140-440) K/uL Neut % (Auto) 82.1 H (42.0-72.0) % Lymph % (Auto) 12.3 L (20-44) % [place] % (Auto) 4.7 (0.0-11.0) % Eos % (Auto) 0.7 (0.0-7.0) % Baso % (Auto) 0.1 (0.0-3.0) % Neut # (Auto) 7.10 H (1.7-7.0) K/uL Lymph # (Auto) 1.10 (0.90-2.90) K/uL [place] # (Auto) 0.40 (0.00-0.90) K/UL Eos # (Auto) 0.06 (0.00-0.50) K/uL Baso # (Auto) 0.01 (0.00-0.30) K/uL Abs Immat Gran (auto) 0.01 (0.00-0.30) K/uL Imm/Tot Granulo (auto) 0.1 % Sodium 134 L (135-149) mmol/L Potassium 4.6 (3.6-5.1) mmol/L Chloride 102 (96-114) mmol/L Carbon Dioxide 25 (20-32) mmol/L Anion Gap 7 (7-15) mEq/L BUN 37 H (7-30) mg/dL Creatinine 1.5 (0.5-1.5) mg/dL Estimated GFR 45 ml/min Glucose 114 (60-115) mg/dL Lactate 1.1 (0.5-1.9) mmol/L Calcium 9.0 (8.4-10.6) mg/dL Total Bilirubin 0.6 (0.1-1.5) mg/dL Direct Bilirubin 0.2 (0.0-0.5) mg/dL AST 34 (12-35) U/L ALT 15 (4-50) U/L Alkaline Phosphatase 66 (40-150) U/L C-Reactive Protein < 0.5 L (0.5-1.0) mg/dL Total Protein 6.5 (6.0-8.3) g/dL Albumin 3.8 (3.3-5.0) g/dL Lipase 81 (23-300) U/L Urine Color Yellow (Yellow) Urine Appearance Clear (Clear) Urine pH 6.5 (5.0-8.5) Ur Specific [place] 1.020 (1.000-1.030) Urine Protein Negative (Negative) Urine Glucose (UA) Negative (Negative) Urine Ketones Negative (Negative) Urine Blood Negative (Negative) Urine Nitrite Negative (Negative) Urine Bilirubin Negative (Negative) Urine Urobilinogen 0.2 (0.2-1.0) Ur Leukocyte Esterase Negative (Negative) Urine RBC 0-2 (0-2) Urine WBC 0-2 (0-5) Ur Squamous Epith Cells Few (None-Few) Urine Bacteria None (None) Imaging Data CT scan - abdomen: Attestation: I have reviewed the pertinent imaging results. Radiologist's impression: Patient: Erin Burch MR#: [id number] : 1940 Acct:[id number] Loc: ED Service Date: 11/26/[address]: Ordering Physician: Sydnie Jones M.D. Date of Service: 11/26/24 Procedure(s): CT abdomen pelvis w con Accession Number(s): [id number] cc: Sydnie Jones M.D.; Christi Ocasio D.O.~ For Patients: As a result of the Cures Act, medical imaging exams and procedure reports are released immediately into your electronic medical record. You may view this report before your referring provider. If you have questions, please contact your health care provider. Indication: Left lower quadrant and right lower quadrant pain Technique: CT through the abdomen and pelvis following 95 mL Isovue 370 IV contrast Comparison: CT chest abdomen pelvis performed 09/19/2021 Findings: Lower chest: No acute abnormality appreciated. Hepatobiliary: No significant parenchymal abnormality is appreciated. Spleen: Unremarkable. Pancreas: No acute abnormality appreciated. Adrenal glands: No acute abnormality appreciated. Kidneys: No significant parenchymal abnormality appreciated. No visualized calculi. No hydronephrosis. Bowel: No obstruction. Severe wall thickening and stranding involving the sigmoid colon. Scattered diverticula noted. The appendix is visualized and appears unremarkable. Vascular: Calcified and noncalcified atherosclerotic plaque. Lymph nodes: No gross lymphadenopathy. Peritoneum: Inflammatory stranding with no organized fluid collection or free air. : Allowing for streak artifact, grossly unremarkable. Soft tissues: No acute abnormality appreciated. Fat containing right greater than left inguinal hernias. Bones: No acute fracture. No lytic or blastic lesion. Bilateral hip replacements. Degenerative changes of the spine. L5 pars defects. Impression: Severe nonspecific colitis of the sigmoid colon. Please note that all CT scans at this facility use dose modulation, iterative reconstruction, and/or weight-based dosing when appropriate to reduce radiation dose to as low as reasonably achievable. Dictated by Giovany Fontanez MD @ 11/26/2024 5:50:50 PM Discharge Plan Discharge Clinical Impression: Colitis Patient Disposition: Home, Self-Care Condition: Improved Instructions: Colitis (ED) Additional Instructions: Augmentin as prescribed. For worsening pain, fever, uncontrolled vomiting or other new symptoms, return to the ER at any time. Otherwise, please make an appointment to be seen in clinic next week for recheck. Keep diet very bland, would recommend sticking with clears for a day or 2 and then advance if you are feeling better. Prescriptions: New amoxicillin-pot clavulanate 875-125 mg tablet 1 tab PO BID Qty: 20 0RF No Action potassium chloride 20 mEq tablet extended release 20 meq PO QDAY Qty: 5 0RF ipratropium-albuterol 0.5 mg-3 mg(2.5 mg base)/3 mL solution for nebulization 3 ml inhalation Q4-6H PRN (Reason: shortness of breath or wheezing) Qty: 90 0RF sotalol 80 mg tablet 40 mg PO Q12H atorvastatin 20 mg tablet 20 mg PO HS metformin 500 mg tablet extended release 24 hr 500 mg PO DAILY (DME) blood-glucose meter [Accu-Chek Guide Me Glucose Mtr] [facility] See Rx Instructions .ROUTE .MEDSUPPLY Qty: 1 Patient Comments: [NO ORIGINAL SIG] Rx Instructions: As directed (DME) Accu-Chek Guide test strips Strip See Rx Instructions .ROUTE .MEDSUPPLY Qty: 10 Rx Instructions: As directed (DME) lancets [Accu-Chek Softclix Lancets] [facility] See [facility] Instructions .ROUTE .MEDSUPPLY Qty: 100 Patient Comments: [NO ORIGINAL SIG] Rx Instructions: As directed hydralazine 50 mg tablet 50 mg PO 3XD spironolactone 50 mg tablet 50 mg PO DAILY doxazosin 2 mg tablet 2 mg PO HS furosemide 20 mg tablet 20 mg PO DAILY levothyroxine 100 mcg tablet 100 mcg PO DAILY lisinopril 40 mg tablet 40 mg PO DAILY Eliquis 5 mg tablet 5 mg PO Q12H Xtandi 40 mg capsule 120 mg PO QDAY Qty: 90 6RF Follow Up/Referrals: Christi Ocasio DO [Primary Care Provider, Family Practice] Stand Alone Forms: [employer] Info Instructions
== END 2024-11-26 18:17 | disposition home or self-care (01) ==
PROVIDERS: Emergency Provider Emergency Medicine; PCP Family Medicine
DX: K52.9 Noninfective gastroenteritis and colitis, unspecified (principal)
CPT/HCPCS: 36415; 74177; 80048; 80076; 81001; 83605; 83690; 85025; 86140; 99284; A9270; J7030; Q9967

== ENCOUNTER 2025-01-20 10:00 | Outpatient (RCR) | payer MEDICARE, BC, SELFPAY ==
--- NOTE | 2024-10-16 12:11 | ONC.NURNOTE ---
Addendum entered by Zoey Medley RN 10/27/24 11:44: Reviewed on clinical pharm as a minor interaction. Original Note: Received call from Charissa null with [employer] wanting to let MD know there is a drug interaction with Eliquis and Xtandi. Xtandi can decrease the effects of the eliquis
[2024-11-10 10:32] LABS: Hematocrit* 37.8 % (37.0-53.0); Hemoglobin* 12.7 gm/dL (13.5-17.5); Immature Granulocytes Abs Auto 0.00 K/uL (0.00-0.30); Immature Granulocytes Pct Auto 0.0 %; Lymphocytes Absolute Auto 1.26 K/uL (0.90-2.90); Mean Corpuscular HGB Conc 34 gm/dL (32-36); Mean Corpuscular Hemoglobin 31 pg (26-34); Mean Corpuscular Volume 92 fL (80-100); RDW Coefficient of Variation % 12.9 % (11.5-15.5); Red Blood Count* 4.12 m/uL (4.30-5.90); White Blood Count* 4.82 K/uL (4.50-11.00)
[2024-11-10 10:34] LABS: Slide Review Reflex No
[2024-11-10 10:48] LABS: Albumin* 3.9 g/dL (3.3-5.0); Chloride* 106 mmol/L (96-114); Potassium* 4.9 mmol/L (3.6-5.1); Sodium* 139 mmol/L (135-149)
[2024-11-10 10:51] LABS: Alanine Aminotransferase* 15 U/L (4-50); Alkaline Phosphatase* 70 U/L (40-150); Anion Gap 8 mEq/L (7-15); Aspartate Amino Transferase* 27 U/L (12-35); Bilirubin Total* 0.3 mg/dL (0.1-1.5); Blood Urea Nitrogen* 43 mg/dL (7-30); Carbon Dioxide* 25 mmol/L (20-32); Creatinine* 1.7 mg/dL (0.5-1.5); Est. Creatinine Clearance* 29.70; Estimated Glomerular Filt Rate 39 ml/min; Total Protein* 6.5 g/dL (6.0-8.3)
[2024-11-10 10:52] LABS: Calcium* 8.9 mg/dL (8.4-10.6); Glucose* 117 mg/dL (60-115)
[2024-11-10 11:28] LABS: PSA Diagnostic* < 0.06 ng/mL (0.10-4.00)
--- NOTE | 2024-11-10 13:39 | ONC.NURNOTE ---
message left on voicemail PSA remains undetectable encourage fluids as Creat is slightly elevated call with any questions
[2025-01-20 10:02] VITALS: BP 163/70; PULSE 44; RESP 16; TEMP 36.6; O2SAT 98
[2025-01-20] MEDS: LEUPROLIDE ACETATE (ELIGARD) 45 MG SYRINGE SUBCUT (10:48)
== END 2025-02-13 23:59 | disposition home or self-care (01) ==
LOC: CCIC 10:00
PROVIDERS: Physician Assistant; PCP Family Medicine; Referring Provider Family Medicine; Visit Provider Internal Medicine Hematology & Oncology
DX: C61 Malignant neoplasm of prostate (principal); Z79.818 Long term (current) use of other agents affecting estrogen receptors and estrogen levels
CPT/HCPCS: 36415; 80053; 84153; 85025; 96402; 99214; 99215; G0463; J9217